=== PATIENT | male | born 1950 | race African-American/Black ===

== ENCOUNTER 2021-12-11 06:00 | Inpatient (IN) ==
[2021-12-11] MEDS ORDERED: DEXTROSE 50% 25 GM/50 ML VIAL IV PRN (11:36)
[2021-12-11] MEDS ORDERED: GLUCAGON 1 MG VIAL IM PRN ×2 (11:36)
[2021-12-11] MEDS ORDERED: SODIUM CHLORIDE 0.9% 1,000 ML IV SCH (12:00)
[2021-12-11] MEDS ORDERED: CLORAZEPATE 3.75 MG TABLET PO PRN (12:41)
[2021-12-11] MEDS ORDERED: NITROGLYCERIN SL 0.4 MG TABLET SL PRN (12:41)
[2021-12-11] MEDS ORDERED: MORPHINE 2 MG/1 ML SYRINGE IV PRN (12:41)
[2021-12-11] MEDS ORDERED: DEXTROSE 10% 250 ML BAG IV PRN (12:53)
[2021-12-11 13:17] LABS: Basophils # 0.1 10*3/uL (0.0-0.2); Basophils % 0.7 % (0.0-0.8); Eosinophils # 0.2 10*3/uL (0.0-0.87); Eosinophils % 2.5 % (0.00-10.9); Hematocrit 39.7 VOL% (42.0-52.0); Hemoglobin 12.4 GM/DL (14.0-18.0); Immature Granulocytes % 0.3 %; Immature Granulocytes Absolute 0.03 #; Lymphocytes # 1.6 10*3/uL (1.4-4.0); Lymphocytes % 18.5 % (21.2-54.2); Mean Corpuscular HGB Conc 31.2 GM/DL (32-36); Mean Corpuscular Volume 93.9 FL (87-102); Mean Platelet Volume 11.1 FL (9.6-12.0); Monocytes # 0.7 10*3/uL (0.11-0.8); Monocytes % 7.8 % (1.7-12.7); Neutrophils % 70.2 % (38.7-73.9); Platelet Count 250 T/CUMM (130-400); Red Blood Count 4.23 MC/CUMM (3.8-5.5); Red Cell Distribution Width 15.1 % (9.3-17.3); White Blood Count 8.9 T/CUMM (4-12)
[2021-12-11 13:40] LABS: Albumin 3.5 G/DL (3.4-5.0); Bilirubin,Total 0.9 MG/DL (0.20-1.00); Calcium 10.5 MG/DL (8.5-10.1); Osmolality,Calculated 283.8 MOS/KG (273-304); Potassium 5.3 MMOL/L (3.5-5.1); Total Protein 8.8 G/DL (6.4-8.2)
[2021-12-11 13:48] LABS: Atypical Lymphocytes Few; Eosinophils 3 % (0-10); Lymphocytes 21 % (20-55); Platelet Estimate Normal; Polychromasia Slight; Total Cells Counted 100
[2021-12-11 15:00] LABS: Arterial Base Excess iSTAT -2 MMOL/L (-2.5-2.5); Arterial Bicarbonate iSTAT 22.1 MMOL/L (20-26); Arterial O2 Saturation iSTAT 97 % (95-100); Arterial PCO2 iSTAT 37 MM HG (35-48); Arterial PO2 iSTAT 89 MM HG (80-95); Arterial Total CO2 iSTAT 23 MMO/L (23-27); Arterial pH iSTAT 7.391 (7.35-7.45)
[2021-12-11] MEDS: CHLORHEXIDINE 4% SOLN 118 ML BOTTLE TOP SCH ×2 (17:20→21:40)
[2021-12-11] MEDS: INSULIN REGULAR 100 UNIT/ML SUBCUT SCH ×2 (17:37→20:40)
[2021-12-11] MEDS: METOPROLOL TARTRATE 50 MG TABLET PO SCH (20:17)
[2021-12-11] MEDS ORDERED: ATORVASTATIN 40 MG TABLET PO SCH (21:00)
[2021-12-11] MEDS: CHLORHEXIDINE 0.12% ORAL RINSE 60 ML BOTTLE SWISH/SPIT SCH (23:40)
[2021-12-12] MEDS ORDERED: PAPAVERINE 60 MG/2 ML VIAL ONE (04:16)
[2021-12-12] MEDS ORDERED: VANCOMYCIN 1,000 MG VIAL ONE (04:17)
[2021-12-12] MEDS ORDERED: VANCOMYCIN 500 MG VIAL ONE (04:17)
[2021-12-12] MEDS: CHLORHEXIDINE 4% SOLN 118 ML BOTTLE TOP SCH (04:55)
[2021-12-12] MEDS ORDERED: CEFUROXIME INJ 1,500 MG in SODIUM CHLORIDE 0.9% 100 ML IV ONE (05:00)
[2021-12-12] MEDS ORDERED: PANTOPRAZOLE 40 MG TABLET PO STA (05:06)
[2021-12-12] MEDS ORDERED: DIAZEPAM 5 MG TABLET PO ONE (05:30)
[2021-12-12] MEDS ORDERED: HEPARIN/NACL 0.9% 2 UNITS/ML 1,000 UNIT/500 ML BAG IV ONE (05:46)
[2021-12-12] MEDS ORDERED: MINERAL OIL/PETROLATUM OPH OINT 3.5 GM TUBE ONE (05:46)
[2021-12-12] MEDS ORDERED: MIDAZOLAM 10 MG/2 ML VIAL ONE ×4 (05:46→10:17)
[2021-12-12] MEDS ORDERED: NITROGLYCERIN DRIP 50 MG/250 ML BOTTLE IV ONE (05:46)
[2021-12-12] MEDS ORDERED: CALCIUM CHLORIDE 1,000 MG/10 ML VIAL IV ONE ×2 (05:46→11:48)
[2021-12-12] MEDS ORDERED: VECURONIUM 10 MG VIAL IV ONE ×4 (05:46→05:49)
[2021-12-12] MEDS ORDERED: AMINOCAPROIC ACID 5,000 MG/20 ML VIAL ONE (05:46)
[2021-12-12] MEDS ORDERED: PHENYLEPHRINE DRIP 20 MG/250 ML PREMIX IV ONE (05:46)
[2021-12-12] MEDS ORDERED: LACTATED RINGERS 1,000 ML IV ONE (05:46)
[2021-12-12] MEDS ORDERED: SODIUM CHLORIDE 0.9% 1,000 ML IV ONE (05:46)
[2021-12-12] MEDS ORDERED: ETOMIDATE 40 MG/20 ML VIAL IV ONE (05:46)
[2021-12-12] MEDS ORDERED: ePHEDrine 50 MG/ML VIAL ONE (05:46)
[2021-12-12] MEDS ORDERED: SODIUM CHLORIDE 0.9% 250 ML IV ONE (05:46)
[2021-12-12] MEDS ORDERED: LIDOCAINE 2% 5 ML VIAL ONE ×2 (05:46→11:47)
[2021-12-12] MEDS ORDERED: SEVOFLURANE 1 UNIT/15 MINUTE INH ONE ×4 (05:46→12:41)
[2021-12-12] MEDS ORDERED: SUFentanil 250 MCG/5 ML AMP ONE (05:47)
[2021-12-12 07:33] LABS: ABG Base Excess -3.4 MMOL/L (-2.5-2.5); ABG HCO3 21.6 MMOL/L (20-26); ABG Oxygen Saturation 99.9 % (95-100); ABG PCO2 40.8 MM HG (35-48); ABG PH 7.342 (7.35-7.45); Glucose Heart Surgery 172 MG/DL (74-106); Hemoglobin Heart Surgery 10.7 G/DL (14.0-18.0); PCO2 Patient Temp Arterial 40.8 MMHG; PH Patient Temp Arterial 7.342; Patient Temperature 37 CELCIUS; Potassium Heart/CVR 4.6 MMOL/L (3.5-5.1); Sodium Heart/CVR 141 MMOL/L (135-145)
[2021-12-12 07:34] LABS: Hyaline Casts,Urine 4 /LPF (0-3); RBC,Urine 2 /HPF (0-4); Squamous Epithelial Cell,Urine Occasional /HPF (0-10); Urine Appearance Clear (Clear); Urine Color Yellow (Yellow)
[2021-12-12 07:35] LABS: Bilirubin,Urine Negative (Negative); Blood, Urine Trace mg/dL (Negative); Glucose,Urine (UA) Negative (Negative); Ketones,Urine Negative (Negative); Nitrite,Urine Negative (Negative); Protein,Urine 30 mg/dL (Negative); Urine Urobilinogen 0.2 eU/dL (<2.0)
[2021-12-12 08:46] LABS: Hematocrit Heart Surgery 22.4 PERCENT (42-52); Hemoglobin Heart Surgery 7.2 G/DL (14.0-18.0); PCO2 Patient Temp Venous 41.6 MM HG; PH Patient Temp Venous 7.36; PO2 Patient Temp Venous 49.5 MM HG; Potassium Heart/CVR 5.4 MMOL/L (3.5-5.1); VBG Base Excess -1.7 MEQ/L (0-4); VBG HCO3 22.8 MEQ/L (24-28); VBG Oxygen Saturation 84.6 %; VBG PCO2 43.7 MMHG (41-51); VBG PH 7.346; VBG PO2 52.9 MMHG (17-40); VBG Total CO2 22.7 MMOL/L
[2021-12-12] MEDS ORDERED: NITROPRUSSIDE 50 MG/2 ML VIAL ONE (09:03)
[2021-12-12] MEDS ORDERED: SODIUM BICARBONATE 50 MEQ/50 ML VIAL IV ONE ×7 (09:03→20:40)
[2021-12-12] MEDS ORDERED: POTASSIUM CHLORIDE RIDER 20 MEQ/100 ML PREMIX IV ONE (09:04)
[2021-12-12] MEDS ORDERED: PHENYLEPHRINE DRIP 40 MG/250 ML PREMIX IV ONE (09:04)
[2021-12-12] MEDS ORDERED: CALCIUM CHLORIDE 1,000 MG/10 ML SYRINGE IV ONE (09:04)
[2021-12-12] MEDS ORDERED: ALBUMIN 5% 12.5 GM/250 ML VIAL IV ONE ×3 (09:04→12:02)
[2021-12-12 09:16] LABS: Hematocrit Heart Surgery 23.8 PERCENT (42-52); Hemoglobin Heart Surgery 7.6 G/DL (14.0-18.0); PCO2 Patient Temp Venous 35.9 MM HG; PH Patient Temp Venous 7.388; Potassium Heart/CVR 4.9 MMOL/L (3.5-5.1); VBG Base Excess -2.8 MEQ/L (0-4); VBG HCO3 21.9 MEQ/L (24-28); VBG Oxygen Saturation 83.1 %; VBG PCO2 41.5 MMHG (41-51); VBG PH 7.345; VBG PO2 51.4 MMHG (17-40); VBG Total CO2 21.4 MMOL/L
[2021-12-12] MEDS ORDERED: ESMOLOL 100 MG/10 ML VIAL IV ONE (09:27)
[2021-12-12] MEDS: METOPROLOL TARTRATE 50 MG TABLET PO SCH ×3 (09:36→20:00)
[2021-12-12] MEDS: CHLORHEXIDINE 0.12% ORAL RINSE 60 ML BOTTLE SWISH/SPIT SCH ×2 (09:36→20:40)
[2021-12-12] MEDS: INSULIN REGULAR 100 UNIT/ML SUBCUT SCH ×2 (09:36→13:24)
[2021-12-12 09:45] LABS: Hematocrit Heart Surgery 22.3 PERCENT (42-52); Hemoglobin Heart Surgery 7.1 G/DL (14.0-18.0); PCO2 Patient Temp Venous 37.6 MM HG; PH Patient Temp Venous 7.38; PO2 Patient Temp Venous 38.6 MM HG; Potassium Heart/CVR 5.1 MMOL/L (3.5-5.1); VBG Base Excess -2.5 MEQ/L (0-4); VBG Oxygen Saturation 73.3 %; VBG PCO2 39.4 MMHG (41-51); VBG PH 7.365; VBG PO2 41.4 MMHG (17-40); VBG Total CO2 21.4 MMOL/L
[2021-12-12 10:15] LABS: Hematocrit Heart Surgery 24.2 PERCENT (42-52); Hemoglobin Heart Surgery 7.8 G/DL (14.0-18.0); PCO2 Patient Temp Venous 30.4 MM HG; PH Patient Temp Venous 7.454; PO2 Patient Temp Venous 34.4 MM HG; Potassium Heart/CVR 4.6 MMOL/L (3.5-5.1); VBG Base Excess -1.9 MEQ/L (0-4); VBG HCO3 22.5 MEQ/L (24-28); VBG Oxygen Saturation 77.1 %; VBG PCO2 35.2 MMHG (41-51); VBG PH 7.41; VBG PO2 42.3 MMHG (17-40); VBG Total CO2 20.9 MMOL/L
[2021-12-12] MEDS ORDERED: THROMBIN TOPICAL (RECOMBINANT) 5,000 UNIT VIAL TOP ONE (10:34)
[2021-12-12 10:50] LABS: Hematocrit Heart Surgery 23.5 PERCENT (42-52); Hemoglobin Heart Surgery 7.5 G/DL (14.0-18.0); PCO2 Patient Temp Venous 30.4 MM HG; PH Patient Temp Venous 7.446; VBG Base Excess -2.5 MEQ/L (0-4); VBG HCO3 21.9 MEQ/L (24-28); VBG Oxygen Saturation 60.6 %; VBG PCO2 33.5 MMHG (41-51); VBG PH 7.417; VBG PO2 32.3 MMHG (17-40); VBG Total CO2 20.4 MMOL/L
[2021-12-12] MEDS ORDERED: ALBUTEROL INHALER 18 GM INH ONE (11:15)
[2021-12-12 11:28] LABS: ABG Base Excess -4.9 MMOL/L (-2.5-2.5); ABG HCO3 20.3 MMOL/L (20-26); ABG Oxygen Saturation 92.7 % (95-100); ABG PCO2 34.3 MM HG (35-48); ABG PO2 66.4 MM HG (80-95); ABG TCO2 18.7 MMOL/L (23-27); Glucose Heart Surgery 304 MG/DL (74-106); Hematocrit Heart Surgery 23.2 PERCENT (42-52); Hemoglobin Heart Surgery 7.4 G/DL (14.0-18.0); Ionized Calcium Arterial 1.25 MMOL/L (1.21-1.46); PCO2 Patient Temp Arterial 34.3 MMHG; PO2 Patient Temp Arterial 66.4 MM HG; Patient Temperature 37 CELCIUS; Potassium Heart/CVR 3.8 MMOL/L (3.5-5.1); Sodium Heart/CVR 131 MMOL/L (135-145)
[2021-12-12] MEDS ORDERED: NITROPRUSSIDE 100 MG in DEXTROSE 5% 250 ML IV PRN (11:33)
[2021-12-12] MEDS ORDERED: INSULIN REGULAR 100 UNIT/ML IV ONE (11:33)
[2021-12-12] MEDS ORDERED: VECURONIUM 10 MG VIAL IV PRN (11:33)
[2021-12-12] MEDS ORDERED: LACTATED RINGERS 250 ML IV PRN (11:33)
[2021-12-12] MEDS ORDERED: ACETAMINOPHEN 650 MG SUPP RECTAL PRN (11:33)
[2021-12-12] MEDS ORDERED: CHLORHEXIDINE 4% SOLN 118 ML BOTTLE TOP PRN (11:33)
[2021-12-12] MEDS ORDERED: CALCIUM CHLORIDE 1,000 MG/10 ML SYRINGE IV PRN (11:33)
[2021-12-12] MEDS ORDERED: MAGNESIUM SULF RIDER 4 GM/100 ML PREMIX IV PRN (11:33)
[2021-12-12] MEDS ORDERED: POTASSIUM CHLORIDE RIDER 20 MEQ/100 ML PREMIX IV PRN (11:33)
[2021-12-12] MEDS ORDERED: ONDANSETRON 4 MG/2 ML VIAL IV PRN (11:33)
[2021-12-12] MEDS ORDERED: MAGNESIUM SULF RIDER 2 GM/50 ML PREMIX IV PRN (11:33)
[2021-12-12] MEDS ORDERED: POTASSIUM CHLORIDE RIDER 10 MEQ/100 ML PREMIX IV PRN (11:33)
[2021-12-12] MEDS ORDERED: DEXTROSE 10% 250 ML BAG IV PRN ×2 (11:41)
[2021-12-12] MEDS ORDERED: ALBUMIN 25% 25 GM/100 ML VIAL IV ONE (11:47)
[2021-12-12] MEDS ORDERED: MAGNESIUM SULFATE 5 GM/10 ML VIAL IV ONE (11:47)
[2021-12-12] MEDS ORDERED: methylPREDNISolone SOD SUC 1,000 MG/8 ML VIAL ONE (11:47)
[2021-12-12] MEDS ORDERED: PROTAMINE SULFATE 250 MG/25 ML VIAL IV ONE (11:48)
[2021-12-12] MEDS ORDERED: HEPARIN 10,000 UNIT/10 ML VIAL ONE (11:48)
[2021-12-12] MEDS ORDERED: DEXTROSE 5% KCL 20 MEQ 40 MEQ/2,000 ML BAG IV ONE (11:48)
[2021-12-12] MEDS ORDERED: PROTAMINE SULFATE 50 MG/5 ML VIAL IV ONE ×2 (11:49→12:36)
[2021-12-12] MEDS ORDERED: POTASSIUM CHLORIDE 20 MEQ/10 ML VIAL ONE (11:49)
[2021-12-12] MEDS ORDERED: FUROSEMIDE 20 MG/2 ML VIAL ONE (11:49)
[2021-12-12] MEDS ORDERED: MANNITOL 12.5 GM/50 ML VIAL IV ONE (11:49)
[2021-12-12] MEDS: SODIUM CHLORIDE 0.45% 1,000 ML IV SCH ×2 (12:25)
[2021-12-12 12:55] LABS: ABG Base Excess -3.2 MMOL/L (-2.5-2.5); ABG HCO3 21.7 MMOL/L (20-26); ABG PH 7.351 (7.35-7.45); ABG PO2 91.9 MM HG (80-95); ABG TCO2 20.7 MMOL/L (23-27); Glucose Heart Surgery 256 MG/DL (74-106); Hematocrit Heart Surgery 24.7 PERCENT (42-52); Hemoglobin Heart Surgery 7.9 G/DL (14.0-18.0); Potassium Heart/CVR 4.3 MMOL/L (3.5-5.1)
[2021-12-12 13:00] LABS: Basophils # 0.1 10*3/uL (0.0-0.2); Basophils % 0.3 % (0.0-0.8); Eosinophils % 0.2 % (0.00-10.9); Hematocrit 24.9 VOL% (42.0-52.0); Hemoglobin 7.9 GM/DL (14.0-18.0); Immature Granulocytes % 0.8 %; Immature Granulocytes Absolute 0.13 #; Mean Corpuscular HGB Conc 31.7 GM/DL (32-36); Mean Corpuscular Volume 93.3 FL (87-102); Mean Platelet Volume 11.2 FL (9.6-12.0); Monocytes # 1.1 10*3/uL (0.11-0.8); Monocytes % 6.5 % (1.7-12.7); Neutrophils % 80.2 % (38.7-73.9); Platelet Count 166 T/CUMM (130-400); Red Blood Count 2.67 MC/CUMM (3.8-5.5); Red Cell Distribution Width 14.9 % (9.3-17.3)
[2021-12-12 13:08] LABS: INR 1.1; PT Patient Result 12.2 SECS (10.5-12.0); Partial Thromboplastin Time 29.3 SECS (23.8-32.1)
[2021-12-12 13:24] LABS: CKMB % 6.79 %
[2021-12-12] MEDS: INSULIN REGULAR DRIP 100 ML IV SCH ×2 (13:26→20:17)
[2021-12-12 13:30] LABS: High Sensitive Troponin I* 5248.6 ng/L (0-78)
[2021-12-12 13:33] LABS: Albumin 3.2 G/DL (3.4-5.0); Bilirubin,Total 1.4 MG/DL (0.20-1.00); Calcium 9.7 MG/DL (8.5-10.1); Potassium 4.3 MMOL/L (3.5-5.1); Total Protein 6.4 G/DL (6.4-8.2)
[2021-12-12] MEDS ORDERED: NITROGLYCERIN DRIP 50 MG/250 ML BOTTLE IV PRN (14:42)
[2021-12-12 14:44] LABS: ABG Base Excess -6.3 MMOL/L (-2.5-2.5); ABG HCO3 19.2 MMOL/L (20-26); ABG Oxygen Saturation 92.6 % (95-100); ABG PCO2 44.1 MM HG (35-48); ABG PH 7.273 (7.35-7.45); ABG PO2 71.7 MM HG (80-95); ABG TCO2 18.8 MMOL/L (23-27); Glucose Heart Surgery 283 MG/DL (74-106); Hematocrit Heart Surgery 32.2 PERCENT (42-52); Hemoglobin Heart Surgery 10.4 G/DL (14.0-18.0); Potassium Heart/CVR 4.1 MMOL/L (3.5-5.1)
[2021-12-12] MEDS: INSULIN REGULAR 100 UNIT/ML IV PRN (15:12)
[2021-12-12] MEDS ORDERED: FUROSEMIDE 40 MG/4 ML VIAL IV ONE (15:21)
[2021-12-12] MEDS: ALBUMIN 5% 12.5 GM/250 ML VIAL IV PRN (16:06)
[2021-12-12 16:22] LABS: ABG Base Excess -10.3 MMOL/L (-2.5-2.5); ABG HCO3 16.2 MMOL/L (20-26); ABG PCO2 44.2 MM HG (35-48); ABG PO2 79.6 MM HG (80-95); ABG TCO2 16.3 MMOL/L (23-27); Glucose Heart Surgery 261 MG/DL (74-106); Hematocrit Heart Surgery 32.6 PERCENT (42-52); Hemoglobin Heart Surgery 10.6 G/DL (14.0-18.0); Potassium Heart/CVR 3.7 MMOL/L (3.5-5.1)
[2021-12-12 16:24] LABS: ABG PH 7.205 (7.35-7.45)
[2021-12-12] MEDS: MIDAZOLAM 2 MG/2 ML VIAL IV PRN (16:57)
[2021-12-12 17:38] LABS: ABG Base Excess -6.5 MMOL/L (-2.5-2.5); ABG Oxygen Saturation 94.9 % (95-100); ABG PCO2 41.7 MM HG (35-48); ABG PH 7.284 (7.35-7.45); ABG PO2 81.6 MM HG (80-95); ABG TCO2 18.3 MMOL/L (23-27); Glucose Heart Surgery 242 MG/DL (74-106); Hematocrit Heart Surgery 30.8 PERCENT (42-52)
[2021-12-12 18:09] LABS: CKMB % 6.18 %; Osmolality,Calculated 292.5 MOS/KG (273-304)
[2021-12-12 18:14] LABS: High Sensitive Troponin I* 10969.2 ng/L (0-78)
[2021-12-12] MEDS ORDERED: FUROSEMIDE 100 MG/10 ML VIAL IV ONE (18:24)
[2021-12-12] MEDS: CEFUROXIME INJ 1,500 MG in SODIUM CHLORIDE 0.9% 100 ML IV SCH (19:26)
[2021-12-12] MEDS: FUROSEMIDE INJ 100 MG in SODIUM CHLORIDE 0.9% 90 ML IV SCH (19:56)
[2021-12-12 20:23] LABS: ABG Base Excess -4.3 MMOL/L (-2.5-2.5); ABG HCO3 20.8 MMOL/L (20-26); ABG PCO2 47.7 MM HG (35-48); ABG PH 7.286 (7.35-7.45); ABG PO2 73.9 MM HG (80-95); ABG TCO2 20.2 MMOL/L (23-27); Glucose Heart Surgery 225 MG/DL (74-106); Hematocrit Heart Surgery 40.8 PERCENT (42-52); Hemoglobin Heart Surgery 13.3 G/DL (14.0-18.0); Potassium Heart/CVR 3.6 MMOL/L (3.5-5.1)
[2021-12-12 20:54] LABS: CKMB % 7.01 %
[2021-12-12] MEDS: MORPHINE 2 MG/1 ML SYRINGE IV PRN (22:10)
[2021-12-12 22:44] LABS: ABG Base Excess -0.9 MMOL/L (-2.5-2.5); ABG HCO3 23.6 MMOL/L (20-26); ABG Oxygen Saturation 95.7 % (95-100); ABG PCO2 41.8 MM HG (35-48); ABG PH 7.373 (7.35-7.45); ABG TCO2 22.2 MMOL/L (23-27); Glucose Heart Surgery 171 MG/DL (74-106); Hematocrit Heart Surgery 31.2 PERCENT (42-52); Hemoglobin Heart Surgery 10.1 G/DL (14.0-18.0)
[2021-12-12 23:46] LABS: ABG HCO3 24.4 MMOL/L (20-26); ABG Oxygen Saturation 96.3 % (95-100); ABG PCO2 40.4 MM HG (35-48); ABG PH 7.397 (7.35-7.45); ABG PO2 82.3 MM HG (80-95); ABG TCO2 22.6 MMOL/L (23-27); Glucose Heart Surgery 170 MG/DL (74-106); Hematocrit Heart Surgery 31.1 PERCENT (42-52); Hemoglobin Heart Surgery 10.1 G/DL (14.0-18.0); Potassium Heart/CVR 4.2 MMOL/L (3.5-5.1)
[2021-12-13] MEDS: FUROSEMIDE INJ 100 MG in SODIUM CHLORIDE 0.9% 90 ML IV SCH ×7 (00:50→21:10)
[2021-12-13 01:09] LABS: ABG Base Excess 0.7 MMOL/L (-2.5-2.5); ABG Oxygen Saturation 96.1 % (95-100); ABG PCO2 39.5 MM HG (35-48); ABG PH 7.413 (7.35-7.45); ABG PO2 79.7 MM HG (80-95); ABG TCO2 22.9 MMOL/L (23-27); Glucose Heart Surgery 168 MG/DL (74-106); Hematocrit Heart Surgery 31.1 PERCENT (42-52); Potassium Heart/CVR 4.2 MMOL/L (3.5-5.1)
[2021-12-13 02:11] LABS: ABG Base Excess 1.1 MMOL/L (-2.5-2.5); ABG HCO3 25.3 MMOL/L (20-26); ABG PCO2 36.6 MM HG (35-48); ABG PH 7.442 (7.35-7.45); ABG PO2 71.3 MM HG (80-95); ABG TCO2 22.7 MMOL/L (23-27); Glucose Heart Surgery 190 MG/DL (74-106); Hematocrit Heart Surgery 30.6 PERCENT (42-52); Hemoglobin Heart Surgery 9.9 G/DL (14.0-18.0); Potassium Heart/CVR 4.5 MMOL/L (3.5-5.1)
[2021-12-13] MEDS: MIDAZOLAM 2 MG/2 ML VIAL IV PRN ×2 (03:44→12:23)
[2021-12-13 04:27] LABS: Basophils % 0.1 % (0.0-0.8); Hematocrit 30.4 VOL% (42.0-52.0); Immature Granulocytes % 0.8 %; Immature Granulocytes Absolute 0.18 #; Lymphocytes % 4.4 % (21.2-54.2); Mean Corpuscular HGB Conc 32.9 GM/DL (32-36); Mean Corpuscular Volume 89.9 FL (87-102); Monocytes # 1.4 10*3/uL (0.11-0.8); Monocytes % 6.2 % (1.7-12.7); Neutrophils % 88.5 % (38.7-73.9); Platelet Count 166 T/CUMM (130-400); Red Blood Count 3.38 MC/CUMM (3.8-5.5); Red Cell Distribution Width 15.8 % (9.3-17.3); White Blood Count 22.3 T/CUMM (4-12)
[2021-12-13] MEDS: DEXMEDETOMIDINE 200 MCG in SODIUM CHLORIDE 0.9% 48 ML IV PRN ×2 (04:34→12:11)
[2021-12-13 04:45] LABS: Band Neutrophils 1 % (0-10); Lymphocytes 5 % (20-55); Nucleated Red Blood Cells 1 (0-5); Platelet Estimate Adequate; Total Cells Counted 100
[2021-12-13 04:50] LABS: Albumin 3.5 G/DL (3.4-5.0); Bilirubin,Direct 0.25 MG/DL (0.0-0.20); Bilirubin,Total 1.1 MG/DL (0.20-1.00); Osmolality,Calculated 296.1 MOS/KG (273-304); Potassium 4.2 MMOL/L (3.5-5.1); Total Protein 6.2 G/DL (6.4-8.2)
[2021-12-13 05:01] LABS: ABG Base Excess 0.9 MMOL/L (-2.5-2.5); ABG HCO3 25.2 MMOL/L (20-26); ABG Oxygen Saturation 96.6 % (95-100); ABG PCO2 36.5 MM HG (35-48); ABG PH 7.441 (7.35-7.45); ABG PO2 83.2 MM HG (80-95); ABG TCO2 22.5 MMOL/L (23-27); Glucose Heart Surgery 170 MG/DL (74-106); Hematocrit Heart Surgery 31.2 PERCENT (42-52); Hemoglobin Heart Surgery 10.1 G/DL (14.0-18.0); Potassium Heart/CVR 4.3 MMOL/L (3.5-5.1)
[2021-12-13 05:23] LABS: CKMB % 11.79 %
[2021-12-13 05:54] LABS: ABG Base Excess 1.7 MMOL/L (-2.5-2.5); ABG HCO3 25.9 MMOL/L (20-26); ABG Oxygen Saturation 96.4 % (95-100); ABG PCO2 36.1 MM HG (35-48); ABG PH 7.456 (7.35-7.45); ABG PO2 78.4 MM HG (80-95); ABG TCO2 23.1 MMOL/L (23-27); Glucose Heart Surgery 146 MG/DL (74-106); Hematocrit Heart Surgery 30.3 PERCENT (42-52); Hemoglobin Heart Surgery 9.8 G/DL (14.0-18.0); Potassium Heart/CVR 4.4 MMOL/L (3.5-5.1)
[2021-12-13 06:23] LABS: High Sensitive Troponin I* 18126.3 ng/L (0-78)
[2021-12-13] MEDS ORDERED: methylPREDNISolone SOD SUC 125 MG/2 ML VIAL IV ONE (06:45)
[2021-12-13] MEDS: ALBUMIN 5% 12.5 GM/250 ML VIAL IV PRN (06:47)
[2021-12-13 07:09] LABS: ABG Base Excess 2.2 MMOL/L (-2.5-2.5); ABG HCO3 26.4 MMOL/L (20-26); ABG Oxygen Saturation 95.6 % (95-100); ABG PCO2 34.2 MM HG (35-48); ABG PH 7.481 (7.35-7.45); ABG PO2 73.9 MM HG (80-95); ABG TCO2 23.3 MMOL/L (23-27); Glucose Heart Surgery 120 MG/DL (74-106); Hematocrit Heart Surgery 29.3 PERCENT (42-52); Hemoglobin Heart Surgery 9.4 G/DL (14.0-18.0); Potassium Heart/CVR 4.2 MMOL/L (3.5-5.1)
[2021-12-13] MEDS: INSULIN REGULAR DRIP 100 ML IV SCH ×2 (07:10→11:43)
[2021-12-13] MEDS: CEFUROXIME INJ 1,500 MG in SODIUM CHLORIDE 0.9% 100 ML IV SCH ×2 (08:29→18:33)
[2021-12-13] MEDS: PANTOPRAZOLE 40 MG VIAL IV SCH (09:15)
[2021-12-13] MEDS: METOPROLOL TARTRATE 50 MG TABLET PO SCH ×2 (09:18→20:29)
[2021-12-13] MEDS: ASPIRIN 325 MG TABLET PO SCH (09:18)
[2021-12-13] MEDS: CHLORHEXIDINE 0.12% ORAL RINSE 60 ML BOTTLE SWISH/SPIT SCH ×2 (09:18→20:29)
[2021-12-13] MEDS: SODIUM CHLORIDE 0.45% 1,000 ML IV SCH ×2 (11:43)
[2021-12-13 13:30] LABS: ABG Base Excess 1.2 MMOL/L (-2.5-2.5); ABG HCO3 25.4 MMOL/L (20-26); ABG Oxygen Saturation 96.1 % (95-100); ABG PH 7.467 (7.35-7.45); ABG PO2 79.7 MM HG (80-95); ABG TCO2 22.5 MMOL/L (23-27); Glucose Heart Surgery 205 MG/DL (74-106); Hematocrit Heart Surgery 28.9 PERCENT (42-52); Hemoglobin Heart Surgery 9.3 G/DL (14.0-18.0); Potassium Heart/CVR 4.6 MMOL/L (3.5-5.1)
[2021-12-13] MEDS: methylPREDNISolone SOD SUC 40 MG/1 ML VIAL IV SCH ×2 (13:40→18:23)
[2021-12-13 14:16] LABS: CKMB % 9.19 %
[2021-12-13 14:18] LABS: High Sensitive Troponin I* 81317.5 ng/L (0-78)
[2021-12-13] MEDS ORDERED: AMIODARONE INJ 450 MG in DEXTROSE 5% 241 ML IV SCH (15:00)
[2021-12-13] MEDS: INSULIN REGULAR 100 UNIT/ML IV PRN ×2 (16:27→21:13)
[2021-12-13 18:52] LABS: CKMB % 7.62 %; High Sensitive Troponin I* 77974.8 ng/L (0-78)
[2021-12-13] MEDS: AMIODARONE INJ 450 MG in DEXTROSE 5% 241 ML IV SCH (21:27)
[2021-12-14] MEDS: INSULIN REGULAR 100 UNIT/ML IV PRN (00:13)
[2021-12-14] MEDS: methylPREDNISolone SOD SUC 40 MG/1 ML VIAL IV SCH ×4 (00:26→18:50)
[2021-12-14] MEDS: FUROSEMIDE INJ 100 MG in SODIUM CHLORIDE 0.9% 90 ML IV SCH ×5 (01:40→21:36)
[2021-12-14 03:36] LABS: Basophils % 0.1 % (0.0-0.8); Hematocrit 28.7 VOL% (42.0-52.0); Hemoglobin 9.4 GM/DL (14.0-18.0); Immature Granulocytes % 1.2 %; Immature Granulocytes Absolute 0.33 #; Lymphocytes % 3.6 % (21.2-54.2); Mean Corpuscular HGB Conc 32.8 GM/DL (32-36); Mean Corpuscular Volume 89.7 FL (87-102); Mean Platelet Volume 12.2 FL (9.6-12.0); Monocytes # 1.9 10*3/uL (0.11-0.8); Monocytes % 6.6 % (1.7-12.7); NRBC # 0.02 10*3/uL; Neutrophils % 88.5 % (38.7-73.9); Platelet Count 151 T/CUMM (130-400); Red Cell Distribution Width 15.6 % (9.3-17.3); White Blood Count 28.6 T/CUMM (4-12)
[2021-12-14 03:37] LABS: ABG Base Excess 2.8 MMOL/L (-2.5-2.5); ABG HCO3 26.9 MMOL/L (20-26); ABG Oxygen Saturation 96.5 % (95-100); ABG PCO2 33.8 MM HG (35-48); ABG PH 7.492 (7.35-7.45); ABG TCO2 23.6 MMOL/L (23-27); Glucose Heart Surgery 179 MG/DL (74-106); Hematocrit Heart Surgery 29.3 PERCENT (42-52); Hemoglobin Heart Surgery 9.5 G/DL (14.0-18.0); Potassium Heart/CVR 3.8 MMOL/L (3.5-5.1)
[2021-12-14 03:58] LABS: Platelet Estimate Adequate
[2021-12-14 04:03] LABS: Albumin 3.1 G/DL (3.4-5.0); Bilirubin,Direct 0.34 MG/DL (0.0-0.20); Bilirubin,Total 1.6 MG/DL (0.20-1.00); Calcium 9.5 MG/DL (8.5-10.1); Osmolality,Calculated 300.3 MOS/KG (273-304); Potassium 3.8 MMOL/L (3.5-5.1); Total Protein 6.7 G/DL (6.4-8.2)
[2021-12-14 04:10] LABS: CKMB % 5.31 %
[2021-12-14 04:16] LABS: High Sensitive Troponin I* 69240.8 ng/L (0-78)
[2021-12-14] MEDS ORDERED: SODIUM CHLORIDE 0.9% 1,000 ML IV SCH (06:50)
[2021-12-14] MEDS ORDERED: DIGOXIN 0.5 MG/2 ML AMP IV ONE (08:21)
[2021-12-14] MEDS: VECURONIUM 10 MG VIAL IV PRN (08:56)
[2021-12-14] MEDS: PHENYLEPHRINE DRIP 40 MG/250 ML PREMIX IV PRN ×3 (09:00→21:28)
[2021-12-14] MEDS ORDERED: INSULIN GLARGINE 100 UNIT/ML SUBCUT SCH (09:00)
[2021-12-14] MEDS ORDERED: CALCIUM CHLORIDE 1,000 MG in SODIUM CHLORIDE 0.9% 100 ML IV ONE (09:04)
[2021-12-14 09:05] LABS: ABG Base Excess -2.1 MMOL/L (-2.5-2.5); ABG HCO3 22.6 MMOL/L (20-26); ABG PCO2 36.7 MM HG (35-48); ABG PH 7.394 (7.35-7.45); ABG PO2 81.2 MM HG (80-95); ABG TCO2 20.4 MMOL/L (23-27); Glucose Heart Surgery 285 MG/DL (74-106); Hematocrit Heart Surgery 30.9 PERCENT (42-52); Potassium Heart/CVR 4.7 MMOL/L (3.5-5.1)
[2021-12-14] MEDS ORDERED: SODIUM BICARBONATE 50 MEQ/50 ML VIAL IV ONE (09:08)
[2021-12-14] MEDS ORDERED: SODIUM BICARBONATE 50 MEQ/50 ML SYRINGE IV ONE (09:08)
[2021-12-14] MEDS ORDERED: EPINEPHrine 1 MG/10 ML SYRINGE IV ONE (09:09)
[2021-12-14] MEDS: METOPROLOL TARTRATE 50 MG TABLET PO SCH ×2 (10:50→21:29)
[2021-12-14] MEDS: ASPIRIN 325 MG TABLET PO SCH (11:05)
[2021-12-14] MEDS: PANTOPRAZOLE 40 MG VIAL IV SCH (11:07)
[2021-12-14] MEDS: DEXMEDETOMIDINE 200 MCG in SODIUM CHLORIDE 0.9% 48 ML IV PRN ×2 (11:10→14:20)
[2021-12-14] MEDS: CHLORHEXIDINE 0.12% ORAL RINSE 60 ML BOTTLE SWISH/SPIT SCH ×2 (11:44→21:30)
[2021-12-14] MEDS: INSULIN REGULAR DRIP 100 ML IV SCH (11:50)
[2021-12-14] MEDS ORDERED: ALBUTEROL/IPRATROPIUM 3 ML NEB RESP TX SCH (13:00)
[2021-12-14] MEDS: LEVALBUTEROL 1.25 MG/3 ML NEB RESP TX SCH ×2 (13:14→20:17)
[2021-12-14 13:30] LABS: ABG Base Excess 2.6 MMOL/L (-2.5-2.5); ABG HCO3 26.7 MMOL/L (20-26); ABG PCO2 43.1 MM HG (35-48); ABG PH 7.412 (7.35-7.45); Glucose Heart Surgery 284 MG/DL (74-106); Hematocrit Heart Surgery 30.6 PERCENT (42-52); Hemoglobin Heart Surgery 9.9 G/DL (14.0-18.0)
[2021-12-14] MEDS: AMIODARONE INJ 450 MG in DEXTROSE 5% 241 ML IV SCH (14:02)
[2021-12-14] MEDS: INSULIN REGULAR 100 UNIT/ML SUBCUT PRN ×3 (14:22→21:29)
[2021-12-14] MEDS: DEXMEDETOMIDINE 400 MCG in SODIUM CHLORIDE 0.9% 96 ML IV PRN (17:50)
[2021-12-14] MEDS ORDERED: ACETAMINOPHEN 325 MG/10.15 ML UDCUP ONE ×2 (22:17)
[2021-12-14] MEDS: ACETAMINOPHEN 325 MG/10.15 ML UDCUP NG PRN (23:55)
[2021-12-15] MEDS: DEXMEDETOMIDINE 400 MCG in SODIUM CHLORIDE 0.9% 96 ML IV PRN ×4 (00:11→19:35)
[2021-12-15] MEDS: methylPREDNISolone SOD SUC 40 MG/1 ML VIAL IV SCH ×4 (00:11→17:59)
[2021-12-15] MEDS: INSULIN REGULAR 100 UNIT/ML SUBCUT PRN ×5 (02:47→22:36)
[2021-12-15] MEDS: FUROSEMIDE INJ 100 MG in SODIUM CHLORIDE 0.9% 90 ML IV SCH ×5 (02:48→19:48)
[2021-12-15] MEDS: AMIODARONE INJ 450 MG in DEXTROSE 5% 241 ML IV SCH ×2 (03:47→21:10)
[2021-12-15 05:31] LABS: Basophils % 0.1 % (0.0-0.8); Hemoglobin 9.3 GM/DL (14.0-18.0); Immature Granulocytes % 1.3 %; Immature Granulocytes Absolute 0.34 #; Lymphocytes # 0.8 10*3/uL (1.4-4.0); Lymphocytes % 2.9 % (21.2-54.2); Mean Corpuscular HGB Conc 32.1 GM/DL (32-36); Mean Corpuscular Volume 93.9 FL (87-102); Mean Platelet Volume 12.8 FL (9.6-12.0); Monocytes # 1.7 10*3/uL (0.11-0.8); Monocytes % 6.3 % (1.7-12.7); NRBC # 0.19 10*3/uL; Neutrophils % 89.4 % (38.7-73.9); Platelet Count 170 T/CUMM (130-400); Red Blood Count 3.09 MC/CUMM (3.8-5.5); Red Cell Distribution Width 15.2 % (9.3-17.3)
[2021-12-15 05:43] LABS: ABG Base Excess 3.1 MMOL/L (-2.5-2.5); ABG HCO3 27.2 MMOL/L (20-26); ABG Oxygen Saturation 97.8 % (95-100); ABG PCO2 44.5 MM HG (35-48); ABG TCO2 25.8 MMOL/L (23-27)
[2021-12-15 05:58] LABS: Lymphocytes 6 % (20-55); Total Cells Counted 100
[2021-12-15 05:59] LABS: Platelet Estimate Adequate
[2021-12-15 06:04] LABS: CKMB % 1.57 %
[2021-12-15 06:08] LABS: High Sensitive Troponin I* 53961.4 ng/L (0-78)
[2021-12-15] MEDS: ACETAMINOPHEN 325 MG/10.15 ML UDCUP NG PRN ×2 (06:11→12:29)
[2021-12-15 06:36] LABS: Albumin 2.7 G/DL (3.4-5.0); Bilirubin,Direct 0.2 MG/DL (0.0-0.20); Bilirubin,Total 1.1 MG/DL (0.20-1.00); Calcium 8.6 MG/DL (8.5-10.1); Osmolality,Calculated 323.7 MOS/KG (273-304); Potassium 3.4 MMOL/L (3.5-5.1); Total Protein 6.7 G/DL (6.4-8.2)
[2021-12-15] MEDS: LEVALBUTEROL 1.25 MG/3 ML NEB RESP TX SCH ×4 (06:59→20:03)
[2021-12-15] MEDS: PHENYLEPHRINE DRIP 40 MG/250 ML PREMIX IV PRN ×2 (07:30→19:48)
[2021-12-15] MEDS: SODIUM CHLORIDE 0.9% 1,000 ML IV SCH (09:00)
[2021-12-15] MEDS: ASPIRIN 325 MG TABLET PO SCH (10:12)
[2021-12-15] MEDS: PANTOPRAZOLE 40 MG VIAL IV SCH (10:13)
[2021-12-15] MEDS: METOPROLOL TARTRATE 25 MG TABLET PO SCH ×2 (10:13→22:26)
[2021-12-15] MEDS: INSULIN GLARGINE 100 UNIT/ML SUBCUT SCH (10:26)
[2021-12-15] MEDS: CHLORHEXIDINE 0.12% ORAL RINSE 60 ML BOTTLE SWISH/SPIT SCH ×2 (10:26→22:18)
[2021-12-15] MEDS: VECURONIUM 10 MG VIAL IV PRN (14:00)
[2021-12-15 16:27] LABS: Bilirubin,Urine Negative (Negative); Blood, Urine Moderate mg/dL (Negative); Glucose,Urine (UA) Negative (Negative); Hyaline Casts,Urine 30 /LPF (0-3); Ketones,Urine Negative (Negative); Mucus,Urine Occasional /LPF (Occasional); Nitrite,Urine Negative (Negative); Protein,Urine Negative (Negative); RBC,Urine 60 /HPF (0-4); Urine Appearance Clear (Clear); Urine Color Yellow (Yellow); Urine Specific Gravity 1.025 (1.001-1.035)
[2021-12-15 16:28] LABS: Urine Urobilinogen 0.2 eU/dL (<2.0)
[2021-12-15] MEDS ORDERED: HEPARIN/NACL 0.9% 2 UNITS/ML 1,000 UNIT/500 ML BAG IV ONE (19:20)
[2021-12-16] MEDS: FUROSEMIDE INJ 100 MG in SODIUM CHLORIDE 0.9% 90 ML IV SCH ×5 (01:19→21:24)
[2021-12-16] MEDS: LEVALBUTEROL 1.25 MG/3 ML NEB RESP TX SCH ×4 (01:23→18:50)
[2021-12-16] MEDS: DEXMEDETOMIDINE 400 MCG in SODIUM CHLORIDE 0.9% 96 ML IV PRN ×4 (01:27→19:55)
[2021-12-16] MEDS: methylPREDNISolone SOD SUC 40 MG/1 ML VIAL IV SCH ×5 (02:00→20:50)
[2021-12-16 04:47] LABS: ABG Base Excess 0.7 MMOL/L (-2.5-2.5); ABG HCO3 25.1 MMOL/L (20-26); ABG Oxygen Saturation 98.9 % (95-100); ABG PCO2 45.8 MM HG (35-48); ABG PH 7.368 (7.35-7.45); ABG TCO2 24.3 MMOL/L (23-27)
[2021-12-16 04:57] LABS: Basophils % 0.1 % (0.0-0.8); Hematocrit 29.4 VOL% (42.0-52.0); Hemoglobin 9.4 GM/DL (14.0-18.0); Immature Granulocytes % 1.5 %; Immature Granulocytes Absolute 0.41 #; Lymphocytes # 0.5 10*3/uL (1.4-4.0); Lymphocytes % 1.8 % (21.2-54.2); Mean Corpuscular Volume 93.9 FL (87-102); Mean Platelet Volume 12.8 FL (9.6-12.0); Monocytes # 1.6 10*3/uL (0.11-0.8); Monocytes % 5.8 % (1.7-12.7); NRBC # 0.24 10*3/uL; Neutrophils % 90.8 % (38.7-73.9); Platelet Count 233 T/CUMM (130-400); Red Blood Count 3.13 MC/CUMM (3.8-5.5); Red Cell Distribution Width 15.1 % (9.3-17.3); White Blood Count 27.9 T/CUMM (4-12)
[2021-12-16 05:17] LABS: Albumin 2.4 G/DL (3.4-5.0); Bilirubin,Total 0.7 MG/DL (0.20-1.00); Calcium 7.2 MG/DL (8.5-10.1); Osmolality,Calculated 342.7 MOS/KG (273-304); Potassium 3.3 MMOL/L (3.5-5.1); Total Protein 6.2 G/DL (6.4-8.2)
[2021-12-16 05:18] LABS: Lymphocytes 3 % (20-55); Total Cells Counted 100
[2021-12-16 05:19] LABS: Platelet Estimate Adequate
[2021-12-16] MEDS: PHENYLEPHRINE DRIP 40 MG/250 ML PREMIX IV PRN ×2 (06:06→16:30)
[2021-12-16] MEDS: INSULIN REGULAR 100 UNIT/ML SUBCUT PRN ×5 (06:15→17:31)
[2021-12-16] MEDS: INSULIN GLARGINE 100 UNIT/ML SUBCUT SCH ×2 (08:59→20:49)
[2021-12-16] MEDS: METOPROLOL TARTRATE 25 MG TABLET PO SCH ×2 (09:05→20:50)
[2021-12-16] MEDS: ASPIRIN 325 MG TABLET PO SCH (09:05)
[2021-12-16] MEDS: PANTOPRAZOLE 40 MG VIAL IV SCH (09:06)
[2021-12-16] MEDS: CHLORHEXIDINE 0.12% ORAL RINSE 60 ML BOTTLE SWISH/SPIT SCH ×2 (09:07→20:50)
[2021-12-16] MEDS: AMIODARONE INJ 450 MG in DEXTROSE 5% 241 ML IV SCH (09:30)
[2021-12-16] MEDS: PIPERACILLIN/TAZOBACTAM 3,375 MG in SODIUM CHLORIDE 0.9% 100 ML IV SCH ×2 (11:17→22:19)
[2021-12-16] MEDS ORDERED: INSULIN GLARGINE 100 UNIT/ML SUBCUT ONE (13:09)
[2021-12-16] MEDS: AMIODARONE 200 MG TABLET PO SCH ×2 (13:27→20:49)
[2021-12-16] MEDS: SODIUM CHLORIDE 0.9% 1,000 ML IV SCH (13:50)
[2021-12-16] MEDS: VECURONIUM 10 MG VIAL IV PRN (16:05)
[2021-12-17] MEDS: LEVALBUTEROL 1.25 MG/3 ML NEB RESP TX SCH ×4 (00:02→19:48)
[2021-12-17] MEDS: VECURONIUM 10 MG VIAL IV PRN ×2 (00:48→19:41)
[2021-12-17] MEDS: PHENYLEPHRINE DRIP 40 MG/250 ML PREMIX IV PRN ×2 (01:20→11:10)
[2021-12-17] MEDS: DEXMEDETOMIDINE 400 MCG in SODIUM CHLORIDE 0.9% 96 ML IV PRN ×3 (01:44→17:10)
[2021-12-17] MEDS: FUROSEMIDE INJ 100 MG in SODIUM CHLORIDE 0.9% 90 ML IV SCH ×6 (01:52→19:00)
[2021-12-17] MEDS: MIDAZOLAM 2 MG/2 ML VIAL IV PRN ×2 (03:17→18:20)
[2021-12-17] MEDS: INSULIN REGULAR 100 UNIT/ML SUBCUT PRN (05:07)
[2021-12-17] MEDS: methylPREDNISolone SOD SUC 40 MG/1 ML VIAL IV SCH ×3 (05:07→20:59)
[2021-12-17 05:12] LABS: Basophils # 0.1 10*3/uL (0.0-0.2); Basophils % 0.3 % (0.0-0.8); Hemoglobin 9.2 GM/DL (14.0-18.0); Immature Granulocytes % 0.9 %; Immature Granulocytes Absolute 0.23 #; Lymphocytes # 0.5 10*3/uL (1.4-4.0); Mean Corpuscular HGB Conc 31.7 GM/DL (32-36); Mean Corpuscular Volume 94.8 FL (87-102); Mean Platelet Volume 12.8 FL (9.6-12.0); Monocytes # 1.3 10*3/uL (0.11-0.8); Monocytes % 4.9 % (1.7-12.7); NRBC # 0.41 10*3/uL; Neutrophils % 91.9 % (38.7-73.9); Platelet Count 212 T/CUMM (130-400); Red Blood Count 3.06 MC/CUMM (3.8-5.5); Red Cell Distribution Width 15.2 % (9.3-17.3)
[2021-12-17 05:31] LABS: Band Neutrophils 1 % (0-10); Lymphocytes 1 % (20-55); Nucleated Red Blood Cells 3 (0-5); Total Cells Counted 100
[2021-12-17 05:32] LABS: Albumin 1.9 G/DL (3.4-5.0); Bilirubin,Total 0.5 MG/DL (0.20-1.00); Calcium 6.9 MG/DL (8.5-10.1); Microcytosis 1+; Osmolality,Calculated 347.3 MOS/KG (273-304); Polychromasia Slight; Potassium 3.5 MMOL/L (3.5-5.1); Total Protein 5.8 G/DL (6.4-8.2)
[2021-12-17 05:33] LABS: Platelet Estimate Normal
[2021-12-17 05:42] LABS: ABG Base Excess 1.1 MMOL/L (-2.5-2.5); ABG HCO3 25.4 MMOL/L (20-26); ABG Oxygen Saturation 98.6 % (95-100); ABG PCO2 47.4 MM HG (35-48); ABG PH 7.361 (7.35-7.45); ABG TCO2 24.8 MMOL/L (23-27)
[2021-12-17] MEDS: CHLORHEXIDINE 0.12% ORAL RINSE 60 ML BOTTLE SWISH/SPIT SCH ×2 (08:00→21:02)
[2021-12-17] MEDS: PANTOPRAZOLE 40 MG VIAL IV SCH (08:15)
[2021-12-17] MEDS: INSULIN REGULAR 100 UNIT/ML SUBCUT SCH ×5 (08:15→23:57)
[2021-12-17] MEDS: INSULIN GLARGINE 100 UNIT/ML SUBCUT SCH ×3 (08:15→20:58)
[2021-12-17] MEDS: AMIODARONE 200 MG TABLET PO SCH (08:20)
[2021-12-17] MEDS: ASPIRIN 325 MG TABLET PO SCH (08:20)
[2021-12-17] MEDS: METOPROLOL TARTRATE 25 MG TABLET PO SCH ×2 (08:20→21:02)
[2021-12-17] MEDS: PIPERACILLIN/TAZOBACTAM 3,375 MG in SODIUM CHLORIDE 0.9% 100 ML IV SCH ×2 (08:25→22:39)
[2021-12-17] MEDS: SODIUM CHLORIDE 0.9% 1,000 ML IV SCH (08:25)
[2021-12-17] MEDS ORDERED: AMIODARONE 150 MG/3 ML VIAL ONE (18:36)
[2021-12-17] MEDS ORDERED: AMIODARONE 450 MG/9 ML VIAL IV ONE (18:36)
[2021-12-17] MEDS ORDERED: DILTIAZEM 25 MG/5 ML VIAL IV ONE (18:37)
[2021-12-17] MEDS: DILTIAZEM INJ 100 MG in SODIUM CHLORIDE 0.9% 100 ML IV SCH (18:50)
[2021-12-17] MEDS ORDERED: AMIODARONE INJ 100 MG in DEXTROSE 5% 100 ML IV ONE (19:00)
[2021-12-17] MEDS ORDERED: DILTIAZEM 50 MG/10 ML VIAL IV ONE (19:00)
[2021-12-17] MEDS ORDERED: AMIODARONE INJ 450 MG in DEXTROSE 5% 241 ML IV SCH (19:10)
[2021-12-17] MEDS: MORPHINE 2 MG/1 ML SYRINGE IV PRN (19:24)
[2021-12-17 19:44] LABS: ABG Base Excess -1.1 MMOL/L (-2.5-2.5); ABG HCO3 23.5 MMOL/L (20-26); ABG Oxygen Saturation 96.7 % (95-100); ABG PCO2 45.6 MM HG (35-48); ABG PH 7.343 (7.35-7.45); ABG TCO2 22.8 MMOL/L (23-27); Glucose Heart Surgery 300 MG/DL (74-106); Hematocrit Heart Surgery 28.9 PERCENT (42-52); Hemoglobin Heart Surgery 9.3 G/DL (14.0-18.0); Potassium Heart/CVR 3.6 MMOL/L (3.5-5.1)
[2021-12-17] MEDS ORDERED: METOPROLOL TARTRATE 5 MG/5 ML VIAL IV ONE (20:00)
[2021-12-17] MEDS ORDERED: FUROSEMIDE 40 MG/4 ML VIAL IV ONE (22:28)
[2021-12-18] MEDS: LEVALBUTEROL 1.25 MG/3 ML NEB RESP TX SCH ×4 (00:44→20:13)
[2021-12-18] MEDS: PHENYLEPHRINE DRIP 40 MG/250 ML PREMIX IV PRN (00:47)
[2021-12-18] MEDS: DEXMEDETOMIDINE 400 MCG in SODIUM CHLORIDE 0.9% 96 ML IV PRN ×4 (00:48→18:20)
[2021-12-18] MEDS: FUROSEMIDE INJ 100 MG in SODIUM CHLORIDE 0.9% 90 ML IV SCH ×5 (00:51→22:11)
[2021-12-18] MEDS ORDERED: AMIODARONE 450 MG/9 ML VIAL IV ONE (02:28)
[2021-12-18] MEDS: AMIODARONE INJ 450 MG in DEXTROSE 5% 241 ML IV SCH ×2 (02:34→17:20)
[2021-12-18 04:25] LABS: ABG HCO3 24.4 MMOL/L (20-26); ABG Oxygen Saturation 99.2 % (95-100); ABG PCO2 40.2 MM HG (35-48); ABG PH 7.397 (7.35-7.45)
[2021-12-18 04:39] LABS: Basophils # 0.1 10*3/uL (0.0-0.2); Basophils % 0.2 % (0.0-0.8); Hematocrit 26.9 VOL% (42.0-52.0); Hemoglobin 8.5 GM/DL (14.0-18.0); Immature Granulocytes % 3.9 %; Immature Granulocytes Absolute 0.96 #; Lymphocytes # 0.5 10*3/uL (1.4-4.0); Lymphocytes % 1.8 % (21.2-54.2); Mean Corpuscular HGB Conc 31.6 GM/DL (32-36); Mean Corpuscular Volume 95.1 FL (87-102); Mean Platelet Volume 13.1 FL (9.6-12.0); Monocytes # 1.2 10*3/uL (0.11-0.8); Monocytes % 4.9 % (1.7-12.7); NRBC # 0.52 10*3/uL; Neutrophils % 89.2 % (38.7-73.9); Platelet Count 213 T/CUMM (130-400); Red Blood Count 2.83 MC/CUMM (3.8-5.5); Red Cell Distribution Width 15.4 % (9.3-17.3); White Blood Count 24.7 T/CUMM (4-12)
[2021-12-18 04:46] LABS: Calcium 6.8 MG/DL (8.5-10.1); Osmolality,Calculated 366.4 MOS/KG (273-304); Potassium 3.8 MMOL/L (3.5-5.1)
[2021-12-18] MEDS: methylPREDNISolone SOD SUC 40 MG/1 ML VIAL IV SCH ×3 (04:57→20:10)
[2021-12-18] MEDS: INSULIN REGULAR 100 UNIT/ML SUBCUT SCH (04:57)
[2021-12-18 05:00] LABS: Lymphocytes 2 % (20-55); Nucleated Red Blood Cells 1 (0-5); Platelet Estimate Adequate; Total Cells Counted 100
[2021-12-18] MEDS: CHLORHEXIDINE 0.12% ORAL RINSE 60 ML BOTTLE SWISH/SPIT SCH ×2 (08:15→20:06)
[2021-12-18] MEDS: INSULIN REGULAR DRIP 100 ML IV PRN ×2 (08:20→18:30)
[2021-12-18] MEDS: PANTOPRAZOLE 40 MG VIAL IV SCH (08:25)
[2021-12-18] MEDS: INSULIN GLARGINE 100 UNIT/ML SUBCUT SCH ×2 (08:25→20:05)
[2021-12-18] MEDS: MORPHINE 2 MG/1 ML SYRINGE IV PRN ×2 (08:25→20:06)
[2021-12-18] MEDS: METOPROLOL TARTRATE 25 MG TABLET PO SCH ×2 (08:35→20:05)
[2021-12-18] MEDS: ASPIRIN 325 MG TABLET PO SCH (08:35)
[2021-12-18] MEDS: PIPERACILLIN/TAZOBACTAM 3,375 MG in SODIUM CHLORIDE 0.9% 100 ML IV SCH ×2 (08:40→22:10)
[2021-12-18] MEDS: HEPARIN DRIP 25,000 UNITS/500 ML PREMIX IV SCH (17:40)
[2021-12-18] MEDS: DILTIAZEM INJ 100 MG in SODIUM CHLORIDE 0.9% 100 ML IV SCH (19:56)
[2021-12-18] MEDS: MIDAZOLAM 2 MG/2 ML VIAL IV PRN (22:11)
[2021-12-19] MEDS: DEXMEDETOMIDINE 400 MCG in SODIUM CHLORIDE 0.9% 96 ML IV PRN ×4 (00:30→17:45)
[2021-12-19] MEDS: FUROSEMIDE INJ 100 MG in SODIUM CHLORIDE 0.9% 90 ML IV SCH ×7 (01:20→22:59)
[2021-12-19 03:30] LABS: ABG Base Excess 1.5 MMOL/L (-2.5-2.5); ABG HCO3 25.8 MMOL/L (20-26); ABG Oxygen Saturation 97.7 % (95-100); ABG PH 7.398 (7.35-7.45); ABG PO2 98.3 MM HG (80-95); ABG TCO2 24.9 MMOL/L (23-27)
[2021-12-19 03:31] LABS: Basophils # 0.1 10*3/uL (0.0-0.2); Basophils % 0.4 % (0.0-0.8); Eosinophils # 0.1 10*3/uL (0.0-0.87); Eosinophils % 0.3 % (0.00-10.9); Hematocrit 23.2 VOL% (42.0-52.0); Hemoglobin 7.3 GM/DL (14.0-18.0); Immature Granulocytes % 8.7 %; Immature Granulocytes Absolute 2.14 #; Lymphocytes # 0.7 10*3/uL (1.4-4.0); Lymphocytes % 2.6 % (21.2-54.2); Mean Corpuscular HGB Conc 31.5 GM/DL (32-36); Mean Corpuscular Volume 94.3 FL (87-102); Mean Platelet Volume 12.4 FL (9.6-12.0); Monocytes # 1.4 10*3/uL (0.11-0.8); Monocytes % 5.7 % (1.7-12.7); Neutrophils % 82.3 % (38.7-73.9); Platelet Count 209 T/CUMM (130-400); Red Blood Count 2.46 MC/CUMM (3.8-5.5); Red Cell Distribution Width 15.6 % (9.3-17.3); White Blood Count 24.6 T/CUMM (4-12)
[2021-12-19 03:51] LABS: Band Neutrophils 2 % (0-10); Lymphocytes 3 % (20-55); Nucleated Red Blood Cells 3 (0-5); Promyelocytes 2 %; Total Cells Counted 100
[2021-12-19 03:52] LABS: Microcytosis Slight
[2021-12-19 04:08] LABS: Calcium 6.4 MG/DL (8.5-10.1); Osmolality,Calculated 370.7 MOS/KG (273-304); Potassium 3.7 MMOL/L (3.5-5.1)
[2021-12-19] MEDS: MIDAZOLAM 2 MG/2 ML VIAL IV PRN ×5 (05:46→19:05)
[2021-12-19] MEDS: methylPREDNISolone SOD SUC 40 MG/1 ML VIAL IV SCH ×3 (05:48→22:04)
[2021-12-19] MEDS: LEVALBUTEROL 1.25 MG/3 ML NEB RESP TX SCH ×4 (06:53→19:36)
[2021-12-19] MEDS: AMIODARONE INJ 450 MG in DEXTROSE 5% 241 ML IV SCH (08:37)
[2021-12-19] MEDS: ASPIRIN 325 MG TABLET PO SCH (09:33)
[2021-12-19] MEDS: PANTOPRAZOLE 40 MG VIAL IV SCH (09:34)
[2021-12-19] MEDS: CHLORHEXIDINE 0.12% ORAL RINSE 60 ML BOTTLE SWISH/SPIT SCH ×2 (09:34→22:04)
[2021-12-19] MEDS: INSULIN GLARGINE 100 UNIT/ML SUBCUT SCH ×2 (09:34→22:03)
[2021-12-19] MEDS: METOPROLOL TARTRATE 25 MG TABLET PO SCH ×2 (09:34→22:04)
[2021-12-19] MEDS: PIPERACILLIN/TAZOBACTAM 3,375 MG in SODIUM CHLORIDE 0.9% 100 ML IV SCH ×2 (09:35→22:04)
[2021-12-19] MEDS: INSULIN REGULAR DRIP 100 ML IV PRN (09:37)
[2021-12-19] MEDS: HEPARIN DRIP 25,000 UNITS/500 ML PREMIX IV SCH ×2 (12:12→13:07)
[2021-12-19] MEDS: MORPHINE 2 MG/1 ML SYRINGE IV PRN (13:26)
[2021-12-19] MEDS: DILTIAZEM INJ 100 MG in SODIUM CHLORIDE 0.9% 100 ML IV SCH (22:03)
[2021-12-20] MEDS: DEXMEDETOMIDINE 400 MCG in SODIUM CHLORIDE 0.9% 96 ML IV PRN ×4 (00:50→23:12)
[2021-12-20] MEDS: AMIODARONE INJ 450 MG in DEXTROSE 5% 241 ML IV SCH ×2 (02:07→18:40)
[2021-12-20] MEDS: LEVALBUTEROL 1.25 MG/3 ML NEB RESP TX SCH ×4 (02:30→19:28)
[2021-12-20] MEDS: FUROSEMIDE INJ 100 MG in SODIUM CHLORIDE 0.9% 90 ML IV SCH ×7 (02:49→22:19)
[2021-12-20] MEDS: MIDAZOLAM 2 MG/2 ML VIAL IV PRN ×3 (03:02→14:35)
[2021-12-20 04:53] LABS: ABG Base Excess -0.7 MMOL/L (-2.5-2.5); ABG HCO3 23.8 MMOL/L (20-26); ABG Oxygen Saturation 98.4 % (95-100); ABG PCO2 47.3 MM HG (35-48); ABG PH 7.334 (7.35-7.45); ABG TCO2 24.1 MMOL/L (23-27)
[2021-12-20 04:55] LABS: Basophils % 0.1 % (0.0-0.8); Hematocrit 23.8 VOL% (42.0-52.0); Hemoglobin 7.6 GM/DL (14.0-18.0); Immature Granulocytes % 18.8 %; Immature Granulocytes Absolute 5.78 #; Lymphocytes # 1.4 10*3/uL (1.4-4.0); Lymphocytes % 4.5 % (21.2-54.2); Mean Corpuscular HGB Conc 31.9 GM/DL (32-36); Mean Corpuscular Volume 96.4 FL (87-102); Mean Platelet Volume 13.5 FL (9.6-12.0); Monocytes # 2.1 10*3/uL (0.11-0.8); Monocytes % 6.7 % (1.7-12.7); NRBC # 2.07 10*3/uL; Neutrophils % 69.9 % (38.7-73.9); Platelet Count 256 T/CUMM (130-400); Red Blood Count 2.47 MC/CUMM (3.8-5.5); Red Cell Distribution Width 16.3 % (9.3-17.3); White Blood Count 30.8 T/CUMM (4-12)
[2021-12-20] MEDS: methylPREDNISolone SOD SUC 40 MG/1 ML VIAL IV SCH ×3 (05:05→21:08)
[2021-12-20 05:12] LABS: Calcium 6.9 MG/DL (8.5-10.1); Osmolality,Calculated 377.9 MOS/KG (273-304); Potassium 4.4 MMOL/L (3.5-5.1)
[2021-12-20] MEDS: INSULIN REGULAR DRIP 100 ML IV PRN (05:15)
[2021-12-20 05:16] LABS: Band Neutrophils 1 % (0-10); Lymphocytes 10 % (20-55); Metamyelocytes 3 %; Myelocytes 3 %; Nucleated Red Blood Cells 10 (0-5); Polychromasia Slight; Promyelocytes 2 %; Total Cells Counted 100
[2021-12-20 05:17] LABS: Anisocytosis 1+; Microcytosis 1+; Target Cells Slight
[2021-12-20] MEDS: MIDAZOLAM 10 MG/2 ML VIAL IV PRN ×2 (07:26→10:47)
[2021-12-20 07:49] LABS: ABG Base Excess -2.3 MMOL/L (-2.5-2.5); ABG HCO3 22.5 MMOL/L (20-26); ABG Oxygen Saturation 99.5 % (95-100); ABG PCO2 57.1 MM HG (35-48); ABG PH 7.251 (7.35-7.45); ABG TCO2 24.1 MMOL/L (23-27)
[2021-12-20] MEDS: ALBUMIN 5% 12.5 GM/250 ML VIAL IV PRN (07:50)
[2021-12-20] MEDS ORDERED: DILTIAZEM 50 MG/10 ML VIAL IV ONE (07:52)
[2021-12-20] MEDS: DILTIAZEM INJ 100 MG in SODIUM CHLORIDE 0.9% 100 ML IV SCH ×2 (07:59→22:19)
[2021-12-20] MEDS ORDERED: DILTIAZEM 25 MG/5 ML VIAL IV ONE (09:00)
[2021-12-20] MEDS: PIPERACILLIN/TAZOBACTAM 3,375 MG in SODIUM CHLORIDE 0.9% 100 ML IV SCH ×2 (09:14→21:08)
[2021-12-20] MEDS: PANTOPRAZOLE 40 MG VIAL IV SCH (09:15)
[2021-12-20] MEDS: INSULIN GLARGINE 100 UNIT/ML SUBCUT SCH ×2 (09:16→21:07)
[2021-12-20] MEDS: CHLORHEXIDINE 0.12% ORAL RINSE 60 ML BOTTLE SWISH/SPIT SCH ×2 (09:17→21:08)
[2021-12-20] MEDS: ASPIRIN 325 MG TABLET PO SCH (09:17)
[2021-12-20] MEDS: METOPROLOL TARTRATE 25 MG TABLET PO SCH ×2 (09:17→21:08)
[2021-12-20] MEDS: HEPARIN DRIP 25,000 UNITS/500 ML PREMIX IV SCH (10:20)
[2021-12-20] MEDS: PHENYLEPHRINE DRIP 40 MG/250 ML PREMIX IV PRN (11:30)
[2021-12-20 12:10] LABS: Hepatitis B Core IgM Quant 0.13 Index; Hepatitis B Surface Ag Quant 0.17 Index; Hepatitis B Surface Ag Result Non-Reactive (NonReactive); Hepatitis C Virus Ab Quant < 0.02 Index; Hepatitis C Virus Ab Result Non-Reactive (NonReactive)
[2021-12-20 13:29] LABS: Hematocrit 22.9 VOL% (42.0-52.0); Hemoglobin 7.1 GM/DL (14.0-18.0)
[2021-12-20] MEDS: PHENYLEPHRINE INJ 160 MG in SODIUM CHLORIDE 0.9% 234 ML IV PRN (13:30)
[2021-12-20] MEDS ORDERED: HEPARIN 10,000 UNIT/10 ML VIAL IV SCH (14:30)
[2021-12-20] MEDS ORDERED: PROTAMINE SULFATE 50 MG/5 ML VIAL IV ONE (16:00)
[2021-12-20 21:59] LABS: Hematocrit 24.8 VOL% (42.0-52.0); Hemoglobin 8.4 GM/DL (14.0-18.0)
[2021-12-21] MEDS: INSULIN REGULAR DRIP 100 ML IV PRN
[2021-12-21] MEDS: LEVALBUTEROL 1.25 MG/3 ML NEB RESP TX SCH ×4 (00:01→19:10)
[2021-12-21] MEDS: FUROSEMIDE INJ 100 MG in SODIUM CHLORIDE 0.9% 90 ML IV SCH ×2 (01:15→07:15)
[2021-12-21] MEDS: MIDAZOLAM 2 MG/2 ML VIAL IV PRN (03:44)
[2021-12-21 04:34] LABS: ABG Base Excess -2.1 MMOL/L (-2.5-2.5); ABG HCO3 22.7 MMOL/L (20-26); ABG Oxygen Saturation 97.8 % (95-100); ABG PH 7.375 (7.35-7.45); ABG TCO2 21.2 MMOL/L (23-27)
[2021-12-21 04:40] LABS: Basophils % 0.1 % (0.0-0.8); Hematocrit 25.3 VOL% (42.0-52.0); Hemoglobin 8.5 GM/DL (14.0-18.0); Immature Granulocytes % 14.5 %; Immature Granulocytes Absolute 5.45 #; Lymphocytes # 1.6 10*3/uL (1.4-4.0); Lymphocytes % 4.3 % (21.2-54.2); Mean Corpuscular HGB Conc 33.6 GM/DL (32-36); Mean Platelet Volume 13.5 FL (9.6-12.0); Monocytes # 2.1 10*3/uL (0.11-0.8); Monocytes % 5.4 % (1.7-12.7); NRBC # 2.28 10*3/uL; Neutrophils % 75.7 % (38.7-73.9); Platelet Count 196 T/CUMM (130-400); Red Blood Count 2.75 MC/CUMM (3.8-5.5); Red Cell Distribution Width 15.9 % (9.3-17.3); White Blood Count 37.7 T/CUMM (4-12)
[2021-12-21] MEDS: methylPREDNISolone SOD SUC 40 MG/1 ML VIAL IV SCH ×2 (04:40→16:45)
[2021-12-21 04:49] LABS: PT Patient Result 10.6 SECS (10.5-12.0); Partial Thromboplastin Time 23.1 SECS (23.8-32.1)
[2021-12-21] MEDS: DEXMEDETOMIDINE 400 MCG in SODIUM CHLORIDE 0.9% 96 ML IV PRN ×4 (04:49→23:34)
[2021-12-21 04:57] LABS: Bilirubin,Total 0.6 MG/DL (0.20-1.00); Calcium 7.2 MG/DL (8.5-10.1); Osmolality,Calculated 362.3 MOS/KG (273-304)
[2021-12-21 05:03] LABS: Band Neutrophils 2 % (0-10); Lymphocytes 6 % (20-55); Nucleated Red Blood Cells 4 (0-5); Platelet Estimate Adequate; Total Cells Counted 100
[2021-12-21] MEDS: AMIODARONE INJ 450 MG in DEXTROSE 5% 241 ML IV SCH (07:00)
[2021-12-21] MEDS: ASPIRIN 325 MG TABLET PO SCH (07:45)
[2021-12-21] MEDS: PANTOPRAZOLE 40 MG VIAL IV SCH (07:45)
[2021-12-21] MEDS: METOPROLOL TARTRATE 25 MG TABLET PO SCH ×2 (07:45→21:25)
[2021-12-21] MEDS: CHLORHEXIDINE 0.12% ORAL RINSE 60 ML BOTTLE SWISH/SPIT SCH ×2 (07:50→21:25)
[2021-12-21] MEDS ORDERED: SODIUM CHLORIDE 0.9% 1,000 ML IV SCH (08:00)
[2021-12-21] MEDS: INSULIN GLARGINE 100 UNIT/ML SUBCUT SCH ×2 (09:00→21:26)
[2021-12-21] MEDS: PIPERACILLIN/TAZOBACTAM 3,375 MG in SODIUM CHLORIDE 0.9% 100 ML IV SCH ×2 (09:05→21:25)
[2021-12-21] MEDS: AMIODARONE 200 MG TABLET PO SCH ×2 (09:15→21:25)
[2021-12-21] MEDS ORDERED: ROCURONIUM 100 MG/10 ML VIAL IV ONE (13:29)
[2021-12-21] MEDS: VECURONIUM 10 MG VIAL IV PRN (13:40)
[2021-12-21] MEDS: MIDAZOLAM 10 MG/2 ML VIAL IV PRN (13:40)
[2021-12-21] MEDS: PHENYLEPHRINE INJ 160 MG in SODIUM CHLORIDE 0.9% 234 ML IV PRN (14:20)
[2021-12-22] MEDS: ACETAMINOPHEN 325 MG/10.15 ML UDCUP NG PRN ×2 (00:08→21:17)
[2021-12-22] MEDS: LEVALBUTEROL 1.25 MG/3 ML NEB RESP TX SCH ×4 (01:00→18:22)
[2021-12-22 04:20] LABS: ABG Base Excess -2.7 MMOL/L (-2.5-2.5); ABG HCO3 22.1 MMOL/L (20-26); ABG Oxygen Saturation 99.4 % (95-100); ABG PCO2 30.7 MM HG (35-48); ABG PH 7.442 (7.35-7.45); ABG TCO2 20.1 MMOL/L (23-27)
[2021-12-22 04:33] LABS: Basophils # 0.2 10*3/uL (0.0-0.2); Basophils % 0.4 % (0.0-0.8); Hemoglobin 7.2 GM/DL (14.0-18.0); Immature Granulocytes % 12.5 %; Immature Granulocytes Absolute 5.29 #; Lymphocytes # 0.9 10*3/uL (1.4-4.0); Lymphocytes % 2.2 % (21.2-54.2); Mean Corpuscular HGB Conc 32.7 GM/DL (32-36); Mean Corpuscular Volume 92.4 FL (87-102); Mean Platelet Volume 13.6 FL (9.6-12.0); Monocytes # 1.6 10*3/uL (0.11-0.8); Monocytes % 3.8 % (1.7-12.7); NRBC # 1.01 10*3/uL; Neutrophils % 81.1 % (38.7-73.9); Platelet Count 201 T/CUMM (130-400); Red Blood Count 2.38 MC/CUMM (3.8-5.5); Red Cell Distribution Width 16.2 % (9.3-17.3)
[2021-12-22 04:38] LABS: White Blood Count 42.3 T/CUMM (4-12)
[2021-12-22 04:47] LABS: Calcium 7.7 MG/DL (8.5-10.1); Osmolality,Calculated 339.7 MOS/KG (273-304); Potassium 4.5 MMOL/L (3.5-5.1)
[2021-12-22 04:52] LABS: Band Neutrophils 1 % (0-10); Hypochromia 1+; Lymphocytes 2 % (20-55); Nucleated Red Blood Cells 3 (0-5); Platelet Estimate Normal
[2021-12-22 04:53] LABS: Microcytosis Slight; Total Cells Counted 100
[2021-12-22] MEDS: DEXMEDETOMIDINE 400 MCG in SODIUM CHLORIDE 0.9% 96 ML IV PRN ×3 (05:25→19:00)
[2021-12-22] MEDS: methylPREDNISolone SOD SUC 40 MG/1 ML VIAL IV SCH (05:30)
[2021-12-22] MEDS: DILTIAZEM INJ 100 MG in SODIUM CHLORIDE 0.9% 100 ML IV SCH ×2 (05:59→23:25)
[2021-12-22] MEDS: INSULIN GLARGINE 100 UNIT/ML SUBCUT SCH ×2 (08:04→21:17)
[2021-12-22] MEDS: ASPIRIN 325 MG TABLET PO SCH (08:04)
[2021-12-22] MEDS: AMIODARONE 200 MG TABLET PO SCH ×2 (08:04→21:20)
[2021-12-22] MEDS: METOPROLOL TARTRATE 25 MG TABLET PO SCH ×2 (08:05→21:16)
[2021-12-22] MEDS: PANTOPRAZOLE 40 MG VIAL IV SCH (08:05)
[2021-12-22] MEDS: CHLORHEXIDINE 0.12% ORAL RINSE 60 ML BOTTLE SWISH/SPIT SCH ×2 (08:05→21:17)
[2021-12-22] MEDS ORDERED: GENTAMICIN INJ 160 MG in SODIUM CHLORIDE 0.9% 100 ML IV SCH (08:30)
[2021-12-22] MEDS: PIPERACILLIN/TAZOBACTAM 3,375 MG in SODIUM CHLORIDE 0.9% 100 ML IV SCH ×2 (09:05→21:21)
[2021-12-22] MEDS ORDERED: GENTAMICIN INJ 160 MG in SODIUM CHLORIDE 0.9% 100 ML IV PRN (09:18)
[2021-12-22] MEDS: MORPHINE 2 MG/1 ML SYRINGE IV PRN ×2 (09:24→12:29)
[2021-12-22] MEDS ORDERED: GENTAMICIN INJ 240 MG in SODIUM CHLORIDE 0.9% 100 ML IV SCH (17:00)
[2021-12-22] MEDS: MIDAZOLAM 2 MG/2 ML VIAL IV PRN (20:00)
[2021-12-22] MEDS ORDERED: GLUCAGON 1 MG VIAL IM PRN (23:21)
[2021-12-23] MEDS: LEVALBUTEROL 1.25 MG/3 ML NEB RESP TX SCH ×4 (00:02→19:16)
[2021-12-23] MEDS: INSULIN REGULAR 100 UNIT/ML SUBCUT SCH ×2 (00:43→04:50)
[2021-12-23] MEDS: DEXMEDETOMIDINE 400 MCG in SODIUM CHLORIDE 0.9% 96 ML IV PRN ×4 (02:29→23:55)
[2021-12-23 03:50] LABS: ABG Base Excess -0.9 MMOL/L (-2.5-2.5); ABG HCO3 23.7 MMOL/L (20-26); ABG Oxygen Saturation 99.1 % (95-100); ABG PCO2 35.4 MM HG (35-48); ABG PH 7.425 (7.35-7.45); ABG TCO2 22.1 MMOL/L (23-27)
[2021-12-23 04:00] LABS: Basophils # 0.1 10*3/uL (0.0-0.2); Basophils % 0.2 % (0.0-0.8); Hematocrit 20.7 VOL% (42.0-52.0); Hemoglobin 6.7 GM/DL (14.0-18.0); Immature Granulocytes % 9.3 %; Immature Granulocytes Absolute 3.28 #; Lymphocytes # 0.6 10*3/uL (1.4-4.0); Lymphocytes % 1.7 % (21.2-54.2); Mean Corpuscular HGB Conc 32.4 GM/DL (32-36); Mean Platelet Volume 13.2 FL (9.6-12.0); Monocytes # 1.5 10*3/uL (0.11-0.8); Monocytes % 4.3 % (1.7-12.7); NRBC # 1.08 10*3/uL; Neutrophils % 84.5 % (38.7-73.9); Platelet Count 195 T/CUMM (130-400); Red Blood Count 2.18 MC/CUMM (3.8-5.5); Red Cell Distribution Width 16.2 % (9.3-17.3); White Blood Count 35.3 T/CUMM (4-12)
[2021-12-23 04:05] LABS: Calcium 8.2 MG/DL (8.5-10.1); Osmolality,Calculated 342.7 MOS/KG (273-304); Potassium 4.8 MMOL/L (3.5-5.1)
[2021-12-23 04:19] LABS: Lymphocytes 2 % (20-55); Metamyelocytes 2 %; Nucleated Red Blood Cells 1 (0-5); Total Cells Counted 100
[2021-12-23 04:20] LABS: Anisocytosis 1+; Microcytosis 1+; Platelet Estimate Adequate; Polychromasia Slight
[2021-12-23] MEDS: INSULIN REGULAR DRIP 100 ML IV PRN (06:45)
[2021-12-23] MEDS ORDERED: SODIUM CHLORIDE 0.9% 1,000 ML IV PRN (07:32)
[2021-12-23] MEDS: PANTOPRAZOLE 40 MG VIAL IV SCH (08:45)
[2021-12-23] MEDS: ASPIRIN 325 MG TABLET PO SCH (08:46)
[2021-12-23] MEDS: AMIODARONE 200 MG TABLET PO SCH ×2 (08:46→21:07)
[2021-12-23] MEDS: INSULIN GLARGINE 100 UNIT/ML SUBCUT SCH ×2 (08:46→21:08)
[2021-12-23] MEDS: METOPROLOL TARTRATE 25 MG TABLET PO SCH ×2 (08:46→21:07)
[2021-12-23] MEDS: CHLORHEXIDINE 0.12% ORAL RINSE 60 ML BOTTLE SWISH/SPIT SCH ×2 (09:29→21:08)
[2021-12-23] MEDS: PIPERACILLIN/TAZOBACTAM 3,375 MG in SODIUM CHLORIDE 0.9% 100 ML IV SCH ×2 (10:31→22:14)
[2021-12-23] MEDS: MORPHINE 2 MG/1 ML SYRINGE IV PRN ×2 (14:12→17:16)
[2021-12-24] MEDS: LEVALBUTEROL 1.25 MG/3 ML NEB RESP TX SCH ×4 (00:57→18:55)
[2021-12-24 03:39] LABS: Basophils # 0.1 10*3/uL (0.0-0.2); Basophils % 0.4 % (0.0-0.8); Eosinophils # 0.1 10*3/uL (0.0-0.87); Eosinophils % 0.4 % (0.00-10.9); Hematocrit 28.7 VOL% (42.0-52.0); Immature Granulocytes % 8.2 %; Immature Granulocytes Absolute 2.38 #; Lymphocytes # 0.5 10*3/uL (1.4-4.0); Lymphocytes % 1.5 % (21.2-54.2); Mean Corpuscular HGB Conc 33.4 GM/DL (32-36); Mean Corpuscular Volume 91.4 FL (87-102); Mean Platelet Volume 12.4 FL (9.6-12.0); Monocytes # 0.9 10*3/uL (0.11-0.8); Monocytes % 3.2 % (1.7-12.7); NRBC # 0.63 10*3/uL; Neutrophils % 86.3 % (38.7-73.9); Platelet Count 160 T/CUMM (130-400); Red Cell Distribution Width 16.9 % (9.3-17.3); White Blood Count 29.2 T/CUMM (4-12)
[2021-12-24 03:41] LABS: ABG Base Excess -1.1 MMOL/L (-2.5-2.5); ABG HCO3 23.5 MMOL/L (20-26); ABG Oxygen Saturation 99.3 % (95-100); ABG PCO2 31.1 MM HG (35-48); ABG TCO2 20.4 MMOL/L (23-27)
[2021-12-24 03:42] LABS: Hemoglobin 9.6 GM/DL (14.0-18.0); Red Blood Count 3.14 MC/CUMM (3.8-5.5)
[2021-12-24 03:57] LABS: Calcium 8.2 MG/DL (8.5-10.1); Osmolality,Calculated 356.1 MOS/KG (273-304); Potassium 4.4 MMOL/L (3.5-5.1)
[2021-12-24 04:03] LABS: Band Neutrophils 2 % (0-10); Lymphocytes 2 % (20-55); Metamyelocytes 1 %; Nucleated Red Blood Cells 5 (0-5); Total Cells Counted 100
[2021-12-24 04:04] LABS: Anisocytosis 1+; Microcytosis 1+; Polychromasia Slight
[2021-12-24] MEDS: DEXMEDETOMIDINE 400 MCG in SODIUM CHLORIDE 0.9% 96 ML IV PRN ×3 (06:06→20:25)
[2021-12-24] MEDS: MIDAZOLAM 2 MG/2 ML VIAL IV PRN ×2 (06:24→15:16)
[2021-12-24] MEDS: PANTOPRAZOLE 40 MG VIAL IV SCH (08:10)
[2021-12-24] MEDS: AMIODARONE 200 MG TABLET PO SCH ×2 (08:10→20:57)
[2021-12-24] MEDS: METOPROLOL TARTRATE 25 MG TABLET PO SCH ×2 (08:10→20:57)
[2021-12-24] MEDS: ASPIRIN 325 MG TABLET PO SCH (08:10)
[2021-12-24] MEDS: INSULIN GLARGINE 100 UNIT/ML SUBCUT SCH ×2 (08:10→21:00)
[2021-12-24] MEDS: CHLORHEXIDINE 0.12% ORAL RINSE 60 ML BOTTLE SWISH/SPIT SCH ×2 (08:11→21:00)
[2021-12-24] MEDS: PIPERACILLIN/TAZOBACTAM 3,375 MG in SODIUM CHLORIDE 0.9% 100 ML IV SCH ×2 (09:35→22:48)
[2021-12-24] MEDS: MORPHINE 2 MG/1 ML SYRINGE IV PRN (11:05)
[2021-12-24] MEDS: INSULIN LISPRO 100 UNIT/ML SUBCUT SCH ×4 (12:41→23:48)
[2021-12-24 14:52] LABS: ABG Base Excess -2.1 MMOL/L (-2.5-2.5); ABG HCO3 22.6 MMOL/L (20-26); ABG Oxygen Saturation 95.2 % (95-100); ABG PCO2 34.1 MM HG (35-48); ABG PH 7.414 (7.35-7.45); ABG PO2 80.7 MM HG (80-95); ABG TCO2 19.9 MMOL/L (23-27)
[2021-12-24] MEDS ORDERED: GENTAMICIN INJ 160 MG in SODIUM CHLORIDE 0.9% 100 ML IV ONE (17:00)
[2021-12-25] MEDS: LEVALBUTEROL 1.25 MG/3 ML NEB RESP TX SCH ×4 (00:08→19:20)
[2021-12-25] MEDS: DEXMEDETOMIDINE 400 MCG in SODIUM CHLORIDE 0.9% 96 ML IV PRN ×3 (02:55→13:41)
[2021-12-25] MEDS: PHENYLEPHRINE INJ 160 MG in SODIUM CHLORIDE 0.9% 234 ML IV PRN (02:59)
[2021-12-25 04:26] LABS: ABG Base Excess -0.7 MMOL/L (-2.5-2.5); ABG HCO3 23.8 MMOL/L (20-26); ABG Oxygen Saturation 96.9 % (95-100); ABG PCO2 27.9 MM HG (35-48); ABG PH 7.498 (7.35-7.45); ABG PO2 87.8 MM HG (80-95); ABG TCO2 19.7 MMOL/L (23-27)
[2021-12-25 04:30] LABS: Basophils # 0.1 10*3/uL (0.0-0.2); Basophils % 0.3 % (0.0-0.8); Eosinophils # 0.2 10*3/uL (0.0-0.87); Eosinophils % 0.5 % (0.00-10.9); Hematocrit 29.9 VOL% (42.0-52.0); Hemoglobin 9.9 GM/DL (14.0-18.0); Immature Granulocytes % 5.2 %; Immature Granulocytes Absolute 1.76 #; Lymphocytes # 0.6 10*3/uL (1.4-4.0); Lymphocytes % 1.8 % (21.2-54.2); Mean Corpuscular HGB Conc 33.1 GM/DL (32-36); Mean Platelet Volume 12.5 FL (9.6-12.0); NRBC # 0.23 10*3/uL; Neutrophils % 89.2 % (38.7-73.9); Platelet Count 199 T/CUMM (130-400); Red Blood Count 3.25 MC/CUMM (3.8-5.5); Red Cell Distribution Width 17.1 % (9.3-17.3); White Blood Count 33.9 T/CUMM (4-12)
[2021-12-25 04:47] LABS: Calcium 8.5 MG/DL (8.5-10.1); Eosinophils 1 % (0-10); Lymphocytes 2 % (20-55); Nucleated Red Blood Cells 1 (0-5); Osmolality,Calculated 337.6 MOS/KG (273-304); Potassium 4.1 MMOL/L (3.5-5.1); Total Cells Counted 100
[2021-12-25 04:48] LABS: Anisocytosis 1+; Microcytosis 1+; Polychromasia Slight
[2021-12-25] MEDS: INSULIN LISPRO 100 UNIT/ML SUBCUT SCH ×5 (06:51→20:45)
[2021-12-25] MEDS: PANTOPRAZOLE 40 MG VIAL IV SCH (08:16)
[2021-12-25] MEDS: AMIODARONE 200 MG TABLET PO SCH ×2 (08:16→20:37)
[2021-12-25] MEDS: METOPROLOL TARTRATE 25 MG TABLET PO SCH ×2 (08:16→20:37)
[2021-12-25] MEDS: ASPIRIN 325 MG TABLET PO SCH (08:17)
[2021-12-25] MEDS: CHLORHEXIDINE 0.12% ORAL RINSE 60 ML BOTTLE SWISH/SPIT SCH ×2 (08:17→20:38)
[2021-12-25] MEDS: INSULIN GLARGINE 100 UNIT/ML SUBCUT SCH ×2 (08:17→20:37)
[2021-12-25] MEDS: PIPERACILLIN/TAZOBACTAM 3,375 MG in SODIUM CHLORIDE 0.9% 100 ML IV SCH ×2 (09:19→22:18)
[2021-12-25] MEDS ORDERED: LIDOCAINE 1%/EPI INJ 20 ML VIAL ONE (09:41)
[2021-12-25] MEDS: MORPHINE 2 MG/1 ML SYRINGE IV PRN ×2 (13:21→20:16)
[2021-12-25] MEDS ORDERED: MIDAZOLAM 2 MG/2 ML VIAL ONE (14:30)
[2021-12-25] MEDS ORDERED: ROCURONIUM 50 MG/5 ML VIAL IV ONE ×2 (14:30→15:12)
[2021-12-25] MEDS ORDERED: fentaNYL 100 MCG/2 ML VIAL ONE (14:49)
[2021-12-25] MEDS ORDERED: PHENYLEPHRINE 1 MG/10 ML SYRINGE IV ONE (14:57)
[2021-12-25] MEDS ORDERED: NOREPINEPHRINE 8 MG in SODIUM CHLORIDE 0.9% 242 ML IV PRN (15:49)
[2021-12-25] MEDS ORDERED: SODIUM CHLORIDE 0.9% 250 ML IV ONE (19:09)
[2021-12-26] MEDS: INSULIN LISPRO 100 UNIT/ML SUBCUT SCH ×6 (00:18→20:19)
[2021-12-26] MEDS: LEVALBUTEROL 1.25 MG/3 ML NEB RESP TX SCH ×4 (00:35→19:12)
[2021-12-26 04:38] LABS: ABG Base Excess -3.4 MMOL/L (-2.5-2.5); ABG HCO3 21.6 MMOL/L (20-26); ABG Oxygen Saturation 98.5 % (95-100); ABG PCO2 32.9 MM HG (35-48); ABG PH 7.406 (7.35-7.45); ABG TCO2 19.1 MMOL/L (23-27); Basophils % 0.1 % (0.0-0.8); Eosinophils # 0.1 10*3/uL (0.0-0.87); Eosinophils % 0.3 % (0.00-10.9); Hematocrit 28.5 VOL% (42.0-52.0); Hemoglobin 9.2 GM/DL (14.0-18.0); Immature Granulocytes % 1.8 %; Lymphocytes # 0.3 10*3/uL (1.4-4.0); Lymphocytes % 1.2 % (21.2-54.2); Mean Corpuscular HGB Conc 32.3 GM/DL (32-36); Mean Corpuscular Volume 95.6 FL (87-102); Mean Platelet Volume 12.3 FL (9.6-12.0); Monocytes # 0.8 10*3/uL (0.11-0.8); Monocytes % 2.8 % (1.7-12.7); NRBC # 0.04 10*3/uL; Neutrophils % 93.8 % (38.7-73.9); Platelet Count 159 T/CUMM (130-400); Red Blood Count 2.98 MC/CUMM (3.8-5.5); Red Cell Distribution Width 17.2 % (9.3-17.3); White Blood Count 27.2 T/CUMM (4-12)
[2021-12-26 04:53] LABS: Calcium 8.5 MG/DL (8.5-10.1); Osmolality,Calculated 353.4 MOS/KG (273-304)
[2021-12-26] MEDS: MORPHINE 10 MG/1 ML VIAL IV PRN (04:54)
[2021-12-26 04:56] LABS: Band Neutrophils 1 % (0-10); Lymphocytes 4 % (20-55); Nucleated Red Blood Cells 1 (0-5); Total Cells Counted 100
[2021-12-26] MEDS: ACETAMINOPHEN 325 MG/10.15 ML UDCUP NG PRN (04:56)
[2021-12-26 04:57] LABS: Hypersegmented Neutrophil SLIGHT; Microcytosis 1+; Polychromasia Slight
[2021-12-26 04:58] LABS: Platelet Estimate Adequate
[2021-12-26] MEDS: INSULIN GLARGINE 100 UNIT/ML SUBCUT SCH ×2 (09:31→20:19)
[2021-12-26] MEDS: AMIODARONE 200 MG TABLET PO SCH ×2 (09:34→20:20)
[2021-12-26] MEDS: METOPROLOL TARTRATE 50 MG TABLET PO SCH ×2 (09:35→20:20)
[2021-12-26] MEDS: ASPIRIN 325 MG TABLET PO SCH (09:35)
[2021-12-26] MEDS: PANTOPRAZOLE 40 MG VIAL IV SCH (09:35)
[2021-12-26] MEDS: CHLORHEXIDINE 0.12% ORAL RINSE 60 ML BOTTLE SWISH/SPIT SCH ×2 (09:35→20:19)
[2021-12-26] MEDS: PIPERACILLIN/TAZOBACTAM 3,375 MG in SODIUM CHLORIDE 0.9% 100 ML IV SCH ×2 (09:49→22:56)
[2021-12-26] MEDS ORDERED: GENTAMICIN INJ 160 MG in SODIUM CHLORIDE 0.9% 100 ML IV ONE (17:00)
[2021-12-27] MEDS: LEVALBUTEROL 1.25 MG/3 ML NEB RESP TX SCH ×4 (00:34→19:10)
[2021-12-27] MEDS: INSULIN LISPRO 100 UNIT/ML SUBCUT SCH ×6 (01:04→20:31)
[2021-12-27] MEDS: MORPHINE 2 MG/1 ML SYRINGE IV PRN (03:01)
[2021-12-27] MEDS: MORPHINE 10 MG/1 ML VIAL IV PRN (03:40)
[2021-12-27 04:30] LABS: ABG HCO3 21.9 MMOL/L (20-26); ABG Oxygen Saturation 98.9 % (95-100); ABG PCO2 30.2 MM HG (35-48); ABG PH 7.439 (7.35-7.45)
[2021-12-27 04:32] LABS: Basophils % 0.1 % (0.0-0.8); Eosinophils # 0.1 10*3/uL (0.0-0.87); Eosinophils % 0.4 % (0.00-10.9); Hematocrit 26.2 VOL% (42.0-52.0); Hemoglobin 8.4 GM/DL (14.0-18.0); Immature Granulocytes % 1.2 %; Immature Granulocytes Absolute 0.31 #; Lymphocytes # 0.3 10*3/uL (1.4-4.0); Mean Corpuscular HGB Conc 32.1 GM/DL (32-36); Mean Corpuscular Volume 95.3 FL (87-102); Mean Platelet Volume 12.3 FL (9.6-12.0); Monocytes # 0.7 10*3/uL (0.11-0.8); Monocytes % 2.8 % (1.7-12.7); NRBC # 0.03 10*3/uL; Neutrophils % 94.5 % (38.7-73.9); Platelet Count 143 T/CUMM (130-400); Red Blood Count 2.75 MC/CUMM (3.8-5.5); Red Cell Distribution Width 16.5 % (9.3-17.3); White Blood Count 25.4 T/CUMM (4-12)
[2021-12-27 04:46] LABS: Calcium 8.1 MG/DL (8.5-10.1); Osmolality,Calculated 332.7 MOS/KG (273-304)
[2021-12-27 04:51] LABS: Hypochromia Slight; Lymphocytes 2 % (20-55); Platelet Estimate Adequate; Total Cells Counted 100
[2021-12-27] MEDS: INSULIN GLARGINE 100 UNIT/ML SUBCUT SCH ×2 (08:58→20:31)
[2021-12-27] MEDS: AMIODARONE 200 MG TABLET PO SCH ×2 (08:59→20:32)
[2021-12-27] MEDS: METOPROLOL TARTRATE 50 MG TABLET PO SCH ×2 (08:59→20:32)
[2021-12-27] MEDS: ASPIRIN 325 MG TABLET PO SCH (08:59)
[2021-12-27] MEDS: PANTOPRAZOLE 40 MG VIAL IV SCH (09:00)
[2021-12-27] MEDS: CHLORHEXIDINE 0.12% ORAL RINSE 60 ML BOTTLE SWISH/SPIT SCH ×2 (09:03→20:32)
[2021-12-27] MEDS: PIPERACILLIN/TAZOBACTAM 3,375 MG in SODIUM CHLORIDE 0.9% 100 ML IV SCH ×2 (09:04→22:08)
[2021-12-28] MEDS: INSULIN LISPRO 100 UNIT/ML SUBCUT SCH ×6 (00:24→20:23)
[2021-12-28] MEDS: LEVALBUTEROL 1.25 MG/3 ML NEB RESP TX SCH ×4 (00:35→18:49)
[2021-12-28 04:20] LABS: ABG Base Excess -2.5 MMOL/L (-2.5-2.5); ABG HCO3 22.4 MMOL/L (20-26); ABG Oxygen Saturation 99.5 % (95-100); ABG PCO2 36.5 MM HG (35-48); ABG TCO2 20.8 MMOL/L (23-27)
[2021-12-28 04:25] LABS: Basophils % 0.1 % (0.0-0.8); Eosinophils # 0.2 10*3/uL (0.0-0.87); Eosinophils % 0.7 % (0.00-10.9); Hematocrit 23.5 VOL% (42.0-52.0); Hemoglobin 7.6 GM/DL (14.0-18.0); Immature Granulocytes % 1.1 %; Immature Granulocytes Absolute 0.23 #; Lymphocytes # 0.4 10*3/uL (1.4-4.0); Lymphocytes % 1.7 % (21.2-54.2); Mean Corpuscular HGB Conc 32.3 GM/DL (32-36); Mean Corpuscular Volume 94.4 FL (87-102); Mean Platelet Volume 12.6 FL (9.6-12.0); Monocytes # 0.6 10*3/uL (0.11-0.8); Monocytes % 2.9 % (1.7-12.7); NRBC # 0.02 10*3/uL; Neutrophils % 93.5 % (38.7-73.9); Platelet Count 128 T/CUMM (130-400); Red Blood Count 2.49 MC/CUMM (3.8-5.5); White Blood Count 21.7 T/CUMM (4-12)
[2021-12-28 04:44] LABS: Alanine Aminotransferase 119 U/L (16-61); Albumin 1.3 G/DL (3.4-5.0); Alkaline Phosphatase 82 U/L (45-117); Aspartate Amino Transferase 66 U/L (0-37); Bilirubin,Total < 0.39 MG/DL (0.20-1.00); Blood Urea Nitrogen 148 MG/DL (7-18); Calcium 8.4 MG/DL (8.5-10.1); Carbon Dioxide 23 MMOL/L (21-32); Chloride 112 MMOL/L (98-107); Glucose 148 MG/DL (74-106); Hypochromia Slight; Lymphocytes 1 % (20-55); Microcytosis Slight; Osmolality,Calculated 340.6 MOS/KG (273-304); Potassium 4.3 MMOL/L (3.5-5.1); Sodium 146 MMOL/L (136-145); Total Cells Counted 100; Total Protein 5.3 G/DL (6.4-8.2)
[2021-12-28] MEDS: ASPIRIN 325 MG TABLET PO SCH (08:19)
[2021-12-28] MEDS: METOPROLOL TARTRATE 50 MG TABLET PO SCH ×2 (08:19→20:23)
[2021-12-28] MEDS: AMIODARONE 200 MG TABLET PO SCH ×2 (08:19→20:22)
[2021-12-28] MEDS: INSULIN GLARGINE 100 UNIT/ML SUBCUT SCH ×2 (08:20→20:23)
[2021-12-28] MEDS: PANTOPRAZOLE 40 MG VIAL IV SCH (08:21)
[2021-12-28] MEDS: CHLORHEXIDINE 0.12% ORAL RINSE 60 ML BOTTLE SWISH/SPIT SCH ×2 (08:21→20:24)
[2021-12-28] MEDS: PIPERACILLIN/TAZOBACTAM 3,375 MG in SODIUM CHLORIDE 0.9% 100 ML IV SCH ×2 (10:59→21:31)
[2021-12-28] MEDS ORDERED: GENTAMICIN INJ 160 MG in SODIUM CHLORIDE 0.9% 100 ML IV ONE (17:00)
[2021-12-28] MEDS: ACETAMINOPHEN 325 MG/10.15 ML UDCUP NG PRN (17:20)
[2021-12-29] MEDS: MORPHINE 2 MG/1 ML SYRINGE IV PRN (00:05)
[2021-12-29] MEDS: INSULIN LISPRO 100 UNIT/ML SUBCUT SCH ×7 (00:08→23:56)
[2021-12-29] MEDS: LEVALBUTEROL 1.25 MG/3 ML NEB RESP TX SCH ×4 (00:18→20:07)
[2021-12-29 04:02] LABS: Basophils % 0.1 % (0.0-0.8); Eosinophils # 0.1 10*3/uL (0.0-0.87); Eosinophils % 0.5 % (0.00-10.9); Hematocrit 23.9 VOL% (42.0-52.0); Hemoglobin 7.5 GM/DL (14.0-18.0); Immature Granulocytes % 1.1 %; Immature Granulocytes Absolute 0.22 #; Lymphocytes # 0.4 10*3/uL (1.4-4.0); Lymphocytes % 2.1 % (21.2-54.2); Mean Corpuscular HGB Conc 31.4 GM/DL (32-36); Mean Corpuscular Volume 95.2 FL (87-102); Mean Platelet Volume 12.5 FL (9.6-12.0); Monocytes # 0.6 10*3/uL (0.11-0.8); Monocytes % 3.2 % (1.7-12.7); NRBC # 0.03 10*3/uL; Platelet Count 129 T/CUMM (130-400); Red Blood Count 2.51 MC/CUMM (3.8-5.5); Red Cell Distribution Width 15.5 % (9.3-17.3)
[2021-12-29 04:20] LABS: Albumin 1.3 G/DL (3.4-5.0); Bilirubin,Total 0.4 MG/DL (0.20-1.00); Calcium 8.4 MG/DL (8.5-10.1); Potassium 4.3 MMOL/L (3.5-5.1); Total Protein 5.8 G/DL (6.4-8.2)
[2021-12-29 04:26] LABS: Eosinophils 1 % (0-10); Hypochromia 1+; Lymphocytes 4 % (20-55); Platelet Estimate Normal; Total Cells Counted 100
[2021-12-29 04:26] LABS: Arterial Base Excess iSTAT 0 MMOL/L (-2.5-2.5); Arterial Bicarbonate iSTAT 23.8 MMOL/L (20-26); Arterial O2 Saturation iSTAT 99 % (95-100); Arterial PCO2 iSTAT 36 MM HG (35-48); Arterial PO2 iSTAT 140 MM HG (80-95); Arterial Total CO2 iSTAT 25 MMO/L (23-27); Arterial pH iSTAT 7.435 (7.35-7.45)
[2021-12-29] MEDS ORDERED: LORazepam 2 MG/1 ML VIAL IV PRN (07:52)
[2021-12-29] MEDS: AMIODARONE 200 MG TABLET PO SCH ×2 (08:57→20:11)
[2021-12-29] MEDS: ASPIRIN 325 MG TABLET PO SCH (08:57)
[2021-12-29] MEDS: PANTOPRAZOLE 40 MG VIAL IV SCH (08:58)
[2021-12-29] MEDS: METOPROLOL TARTRATE 50 MG TABLET PO SCH ×2 (08:58→20:11)
[2021-12-29] MEDS: CHLORHEXIDINE 0.12% ORAL RINSE 60 ML BOTTLE SWISH/SPIT SCH ×2 (08:58→20:12)
[2021-12-29] MEDS: INSULIN GLARGINE 100 UNIT/ML SUBCUT SCH ×2 (08:59→20:12)
[2021-12-29] MEDS: PIPERACILLIN/TAZOBACTAM 3,375 MG in SODIUM CHLORIDE 0.9% 100 ML IV SCH ×2 (09:12→21:00)
[2021-12-30] MEDS: LEVALBUTEROL 1.25 MG/3 ML NEB RESP TX SCH ×4 (00:40→19:19)
[2021-12-30 04:05] LABS: Arterial Base Excess iSTAT -1 MMOL/L (-2.5-2.5); Arterial Bicarbonate iSTAT 22.6 MMOL/L (20-26); Arterial O2 Saturation iSTAT 99 % (95-100); Arterial PCO2 iSTAT 34 MM HG (35-48); Arterial PO2 iSTAT 148 MM HG (80-95); Arterial Total CO2 iSTAT 24 MMO/L (23-27); Arterial pH iSTAT 7.428 (7.35-7.45)
[2021-12-30 04:10] LABS: Basophils % 0.2 % (0.0-0.8); Eosinophils # 0.2 10*3/uL (0.0-0.87); Eosinophils % 0.9 % (0.00-10.9); Hematocrit 23.1 VOL% (42.0-52.0); Hemoglobin 7.3 GM/DL (14.0-18.0); Immature Granulocytes % 0.9 %; Immature Granulocytes Absolute 0.15 #; Lymphocytes # 0.5 10*3/uL (1.4-4.0); Lymphocytes % 2.7 % (21.2-54.2); Mean Corpuscular HGB Conc 31.6 GM/DL (32-36); Mean Corpuscular Volume 94.7 FL (87-102); Mean Platelet Volume 12.5 FL (9.6-12.0); Monocytes # 0.6 10*3/uL (0.11-0.8); Monocytes % 3.2 % (1.7-12.7); NRBC # 0.02 10*3/uL; Neutrophils % 92.1 % (38.7-73.9); Platelet Count 154 T/CUMM (130-400); Red Blood Count 2.44 MC/CUMM (3.8-5.5); Red Cell Distribution Width 15.3 % (9.3-17.3); White Blood Count 17.3 T/CUMM (4-12)
[2021-12-30 04:28] LABS: Band Neutrophils 1 % (0-10); Eosinophils 1 % (0-10); Lymphocytes 7 % (20-55); Total Cells Counted 100
[2021-12-30 04:29] LABS: Platelet Estimate Adequate
[2021-12-30 04:32] LABS: Alanine Aminotransferase 131 U/L (16-61); Albumin 1.3 G/DL (3.4-5.0); Alkaline Phosphatase 95 U/L (45-117); Aspartate Amino Transferase 77 U/L (0-37); Bilirubin,Total < 0.39 MG/DL (0.20-1.00); Blood Urea Nitrogen 148 MG/DL (7-18); Calcium 8.6 MG/DL (8.5-10.1); Carbon Dioxide 22 MMOL/L (21-32); Chloride 107 MMOL/L (98-107); Glucose 157 MG/DL (74-106); Potassium 4.6 MMOL/L (3.5-5.1); Sodium 143 MMOL/L (136-145); Total Protein 5.8 G/DL (6.4-8.2)
[2021-12-30] MEDS: INSULIN LISPRO 100 UNIT/ML SUBCUT SCH ×7 (05:09→23:33)
[2021-12-30 05:11] LABS: Phosphorous 8.4 MG/DL (2.5-4.9); Uric Acid 8.2 MG/DL (3.5-7.2)
[2021-12-30] MEDS: ASPIRIN 325 MG TABLET PO SCH (08:09)
[2021-12-30] MEDS: PANTOPRAZOLE 40 MG VIAL IV SCH (08:09)
[2021-12-30] MEDS: METOPROLOL TARTRATE 50 MG TABLET PO SCH ×2 (08:10→20:50)
[2021-12-30] MEDS: AMIODARONE 200 MG TABLET PO SCH ×2 (08:10→20:50)
[2021-12-30] MEDS: INSULIN GLARGINE 100 UNIT/ML SUBCUT SCH ×2 (08:10→20:50)
[2021-12-30] MEDS: CHLORHEXIDINE 0.12% ORAL RINSE 60 ML BOTTLE SWISH/SPIT SCH ×2 (08:11→20:51)
[2021-12-30] MEDS: PIPERACILLIN/TAZOBACTAM 3,375 MG in SODIUM CHLORIDE 0.9% 100 ML IV SCH ×2 (09:05→21:18)
[2021-12-31] MEDS: LEVALBUTEROL 1.25 MG/3 ML NEB RESP TX SCH ×4 (01:05→20:12)
[2021-12-31 03:47] LABS: Basophils % 0.1 % (0.0-0.8); Eosinophils # 0.1 10*3/uL (0.0-0.87); Eosinophils % 0.7 % (0.00-10.9); Hematocrit 20.5 VOL% (42.0-52.0); Hemoglobin 6.6 GM/DL (14.0-18.0); Immature Granulocytes % 0.7 %; Immature Granulocytes Absolute 0.11 #; Lymphocytes # 0.4 10*3/uL (1.4-4.0); Lymphocytes % 2.2 % (21.2-54.2); Mean Corpuscular HGB Conc 32.2 GM/DL (32-36); Mean Corpuscular Volume 94.5 FL (87-102); Mean Platelet Volume 12.3 FL (9.6-12.0); Monocytes # 0.5 10*3/uL (0.11-0.8); Monocytes % 2.9 % (1.7-12.7); NRBC # 0.02 10*3/uL; Neutrophils % 93.4 % (38.7-73.9); Platelet Count 150 T/CUMM (130-400); Red Blood Count 2.17 MC/CUMM (3.8-5.5); Red Cell Distribution Width 15.1 % (9.3-17.3)
[2021-12-31 04:02] LABS: Arterial Base Excess iSTAT -3 MMOL/L (-2.5-2.5); Arterial Bicarbonate iSTAT 21.8 MMOL/L (20-26); Arterial O2 Saturation iSTAT 99 % (95-100); Arterial PCO2 iSTAT 34 MM HG (35-48); Arterial PO2 iSTAT 130 MM HG (80-95); Arterial Total CO2 iSTAT 23 MMO/L (23-27)
[2021-12-31 04:06] LABS: Eosinophils 1 % (0-10); Lymphocytes 2 % (20-55); Platelet Estimate Adequate; Total Cells Counted 100
[2021-12-31 04:07] LABS: Hypochromia Slight
[2021-12-31 04:15] LABS: Alanine Aminotransferase 125 U/L (16-61); Albumin 1.2 G/DL (3.4-5.0); Alkaline Phosphatase 96 U/L (45-117); Aspartate Amino Transferase 59 U/L (0-37); Bilirubin,Total < 0.39 MG/DL (0.20-1.00); Blood Urea Nitrogen 170 MG/DL (7-18); Calcium 8.7 MG/DL (8.5-10.1); Carbon Dioxide 22 MMOL/L (21-32); Chloride 109 MMOL/L (98-107); Glucose 145 MG/DL (74-106); Osmolality,Calculated 344.8 MOS/KG (273-304); Potassium 4.4 MMOL/L (3.5-5.1); Sodium 144 MMOL/L (136-145); Total Protein 5.8 G/DL (6.4-8.2)
[2021-12-31] MEDS: INSULIN LISPRO 100 UNIT/ML SUBCUT SCH ×6 (04:39→23:16)
[2021-12-31 07:19] LABS: Total Protein (Chem) 5.9 G/DL (6.4-8.3)
[2021-12-31] MEDS: CHLORHEXIDINE 0.12% ORAL RINSE 60 ML BOTTLE SWISH/SPIT SCH ×2 (07:45→21:18)
[2021-12-31] MEDS: PANTOPRAZOLE 40 MG VIAL IV SCH (08:05)
[2021-12-31] MEDS: PIPERACILLIN/TAZOBACTAM 3,375 MG in SODIUM CHLORIDE 0.9% 100 ML IV SCH (08:05)
[2021-12-31] MEDS: INSULIN GLARGINE 100 UNIT/ML SUBCUT SCH ×2 (08:10→21:18)
[2021-12-31] MEDS: AMIODARONE 200 MG TABLET PO SCH ×2 (08:15→21:17)
[2021-12-31] MEDS: METOPROLOL TARTRATE 50 MG TABLET PO SCH ×2 (08:15→21:17)
[2021-12-31] MEDS: ASPIRIN EC 81 MG TABLET PO SCH (08:15)
[2021-12-31 08:54] LABS: Albumin (SPE) 2.1 G/DL (3.2-5.3); Alpha 1 (SPE) 0.6 G/DL (0.1-0.4); Alpha 1 (SPE) Rel % 9.6 %; Alpha 2 (SPE) 1.6 G/DL (0.4-1.0); Alpha 2 (SPE) Rel % 27.9 %; Beta (SPE) 1.1 G/DL (0.5-1.1); Gamma (SPE) 0.6 G/DL (0.7-1.7); Gamma (SPE) Rel % 9.5 %
[2021-12-31] MEDS: LEVOFLOXACIN INJ 500 MG/100 ML PREMIX IV SCH (12:05)
[2021-12-31] MEDS ORDERED: FLUCONAZOLE INJ 200 MG/100 ML PREMIX IV SCH (17:00)
[2021-12-31] MEDS ORDERED: GENTAMICIN INJ 160 MG in SODIUM CHLORIDE 0.9% 100 ML IV ONE (17:00)
[2021-12-31 21:20] LABS: Basophils % 0.2 % (0.0-0.8); Eosinophils % 0.1 % (0.00-10.9); Hematocrit 23.7 VOL% (42.0-52.0); Hemoglobin 7.7 GM/DL (14.0-18.0); Immature Granulocytes % 1.1 %; Immature Granulocytes Absolute 0.21 #; Lymphocytes # 0.3 10*3/uL (1.4-4.0); Lymphocytes % 1.5 % (21.2-54.2); Mean Corpuscular HGB Conc 32.5 GM/DL (32-36); Mean Corpuscular Volume 92.2 FL (87-102); Mean Platelet Volume 12.4 FL (9.6-12.0); Monocytes # 0.6 10*3/uL (0.11-0.8); Monocytes % 2.9 % (1.7-12.7); NRBC # 0.04 10*3/uL; Neutrophils % 94.2 % (38.7-73.9); Platelet Count 157 T/CUMM (130-400); Red Blood Count 2.57 MC/CUMM (3.8-5.5); Red Cell Distribution Width 16.1 % (9.3-17.3); White Blood Count 19.4 T/CUMM (4-12)
[2021-12-31] MEDS: MORPHINE 2 MG/1 ML SYRINGE IV PRN (21:40)
[2021-12-31 21:41] LABS: Lymphocytes 2 % (20-55); Platelet Estimate Adequate; Total Cells Counted 100
[2022-01-01] MEDS: LEVALBUTEROL 1.25 MG/3 ML NEB RESP TX SCH ×4 (00:29→18:48)
[2022-01-01] MEDS: INSULIN LISPRO 100 UNIT/ML SUBCUT SCH ×6 (04:21→23:46)
[2022-01-01 04:25] LABS: Basophils % 0.2 % (0.0-0.8); Eosinophils # 0.1 10*3/uL (0.0-0.87); Eosinophils % 0.3 % (0.00-10.9); Hematocrit 23.1 VOL% (42.0-52.0); Hemoglobin 7.4 GM/DL (14.0-18.0); Immature Granulocytes % 0.8 %; Immature Granulocytes Absolute 0.13 #; Lymphocytes # 0.5 10*3/uL (1.4-4.0); Lymphocytes % 2.8 % (21.2-54.2); Mean Corpuscular Volume 91.3 FL (87-102); Mean Platelet Volume 12.7 FL (9.6-12.0); Monocytes # 0.6 10*3/uL (0.11-0.8); Monocytes % 3.6 % (1.7-12.7); NRBC # 0.03 10*3/uL; Neutrophils % 92.3 % (38.7-73.9); Platelet Count 162 T/CUMM (130-400); Red Blood Count 2.53 MC/CUMM (3.8-5.5); Red Cell Distribution Width 16.5 % (9.3-17.3); White Blood Count 16.9 T/CUMM (4-12)
[2022-01-01 04:44] LABS: Calcium 8.4 MG/DL (8.5-10.1); Eosinophils 1 % (0-10); Lymphocytes 3 % (20-55); Osmolality,Calculated 333.1 MOS/KG (273-304); Platelet Estimate Adequate; Potassium 4.3 MMOL/L (3.5-5.1); Total Cells Counted 100
[2022-01-01 05:03] LABS: ABG Base Excess -2.4 MMOL/L (-2.5-2.5); ABG HCO3 22.4 MMOL/L (20-26); ABG Oxygen Saturation 99.1 % (95-100); ABG PCO2 33.6 MM HG (35-48); ABG PH 7.418 (7.35-7.45); ABG TCO2 20.5 MMOL/L (23-27)
[2022-01-01] MEDS: CHLORHEXIDINE 0.12% ORAL RINSE 60 ML BOTTLE SWISH/SPIT SCH ×2 (07:15→21:18)
[2022-01-01] MEDS: INSULIN GLARGINE 100 UNIT/ML SUBCUT SCH ×3 (08:10→21:17)
[2022-01-01] MEDS: PANTOPRAZOLE 40 MG VIAL IV SCH (08:10)
[2022-01-01] MEDS: AMIODARONE 200 MG TABLET PO SCH ×2 (08:15→21:17)
[2022-01-01] MEDS: ASPIRIN EC 81 MG TABLET PO SCH (08:15)
[2022-01-01] MEDS: METOPROLOL TARTRATE 50 MG TABLET PO SCH ×2 (08:15→21:17)
[2022-01-02] MEDS: LEVALBUTEROL 1.25 MG/3 ML NEB RESP TX SCH ×4 (01:55→20:05)
[2022-01-02 04:21] LABS: Basophils % 0.2 % (0.0-0.8); Eosinophils # 0.1 10*3/uL (0.0-0.87); Eosinophils % 0.9 % (0.00-10.9); Hematocrit 20.7 VOL% (42.0-52.0); Hemoglobin 6.6 GM/DL (14.0-18.0); Immature Granulocytes % 1.2 %; Immature Granulocytes Absolute 0.17 #; Lymphocytes # 0.5 10*3/uL (1.4-4.0); Lymphocytes % 3.3 % (21.2-54.2); Mean Corpuscular HGB Conc 31.9 GM/DL (32-36); Mean Corpuscular Volume 93.7 FL (87-102); Mean Platelet Volume 11.7 FL (9.6-12.0); Monocytes # 0.6 10*3/uL (0.11-0.8); Monocytes % 3.8 % (1.7-12.7); NRBC # 0.03 10*3/uL; Neutrophils % 90.6 % (38.7-73.9); Platelet Count 167 T/CUMM (130-400); Red Blood Count 2.21 MC/CUMM (3.8-5.5); Red Cell Distribution Width 16.4 % (9.3-17.3); White Blood Count 14.4 T/CUMM (4-12)
[2022-01-02 04:36] LABS: Calcium 8.8 MG/DL (8.5-10.1); Potassium 4.6 MMOL/L (3.5-5.1)
[2022-01-02 04:39] LABS: Lymphocytes 2 % (20-55); Platelet Estimate Adequate; Total Cells Counted 100
[2022-01-02] MEDS: INSULIN LISPRO 100 UNIT/ML SUBCUT SCH ×5 (04:58→21:37)
[2022-01-02 05:22] LABS: ABG Base Excess -2.6 MMOL/L (-2.5-2.5); ABG HCO3 22.2 MMOL/L (20-26); ABG Oxygen Saturation 99.1 % (95-100); ABG PCO2 33.8 MM HG (35-48); ABG PH 7.413 (7.35-7.45); ABG TCO2 20.7 MMOL/L (23-27)
[2022-01-02] MEDS: MORPHINE 2 MG/1 ML SYRINGE IV PRN ×2 (06:39→14:00)
[2022-01-02] MEDS: METOPROLOL TARTRATE 50 MG TABLET PO SCH ×2 (08:36→21:37)
[2022-01-02] MEDS: ASPIRIN EC 81 MG TABLET PO SCH (08:36)
[2022-01-02] MEDS: AMIODARONE 200 MG TABLET PO SCH ×2 (08:36→21:37)
[2022-01-02] MEDS: CHLORHEXIDINE 0.12% ORAL RINSE 60 ML BOTTLE SWISH/SPIT SCH ×2 (08:37→21:38)
[2022-01-02] MEDS: PANTOPRAZOLE 40 MG VIAL IV SCH (08:37)
[2022-01-02] MEDS: MICAFUNGIN 100 MG in SODIUM CHLORIDE 0.9% 100 ML IV SCH (09:22)
[2022-01-02] MEDS: INSULIN GLARGINE 100 UNIT/ML SUBCUT SCH ×2 (09:36→21:37)
[2022-01-02] MEDS: LEVOFLOXACIN INJ 500 MG/100 ML PREMIX IV SCH (11:48)
[2022-01-02] MEDS ORDERED: GENTAMICIN INJ 160 MG in SODIUM CHLORIDE 0.9% 100 ML IV ONE (17:00)
[2022-01-03] MEDS: LEVALBUTEROL 1.25 MG/3 ML NEB RESP TX SCH ×4 (00:46→19:07)
[2022-01-03] MEDS: INSULIN LISPRO 100 UNIT/ML SUBCUT SCH ×6 (01:25→21:40)
[2022-01-03 04:16] LABS: Basophils # 0.1 10*3/uL (0.0-0.2); Basophils % 0.4 % (0.0-0.8); Eosinophils # 0.1 10*3/uL (0.0-0.87); Eosinophils % 0.8 % (0.00-10.9); Hematocrit 25.4 VOL% (42.0-52.0); Hemoglobin 7.9 GM/DL (14.0-18.0); Immature Granulocytes % 2.3 %; Immature Granulocytes Absolute 0.33 #; Lymphocytes # 0.7 10*3/uL (1.4-4.0); Lymphocytes % 4.6 % (21.2-54.2); Mean Corpuscular HGB Conc 31.1 GM/DL (32-36); Mean Platelet Volume 12.3 FL (9.6-12.0); Monocytes # 0.6 10*3/uL (0.11-0.8); NRBC # 0.06 10*3/uL; Neutrophils % 87.9 % (38.7-73.9); Platelet Count 178 T/CUMM (130-400); Red Blood Count 2.76 MC/CUMM (3.8-5.5); Red Cell Distribution Width 18.1 % (9.3-17.3); White Blood Count 14.2 T/CUMM (4-12)
[2022-01-03 04:39] LABS: Calcium 8.7 MG/DL (8.5-10.1); Osmolality,Calculated 322.3 MOS/KG (273-304); Potassium 4.3 MMOL/L (3.5-5.1)
[2022-01-03 04:43] LABS: Eosinophils 2 % (0-10); Lymphocytes 7 % (20-55); Platelet Estimate Adequate; Total Cells Counted 100
[2022-01-03 05:43] LABS: ABG HCO3 24.4 MMOL/L (20-26); ABG Oxygen Saturation 98.3 % (95-100); ABG PCO2 35.1 MM HG (35-48); ABG PH 7.439 (7.35-7.45)
[2022-01-03] MEDS: AMIODARONE 200 MG TABLET PO SCH ×2 (08:17→21:41)
[2022-01-03] MEDS: METOPROLOL TARTRATE 50 MG TABLET PO SCH ×2 (08:17→21:41)
[2022-01-03] MEDS: ASPIRIN EC 81 MG TABLET PO SCH (08:18)
[2022-01-03] MEDS: PANTOPRAZOLE 40 MG VIAL IV SCH (08:18)
[2022-01-03] MEDS: CHLORHEXIDINE 0.12% ORAL RINSE 60 ML BOTTLE SWISH/SPIT SCH ×2 (08:18→21:42)
[2022-01-03] MEDS: INSULIN GLARGINE 100 UNIT/ML SUBCUT SCH ×2 (09:06→21:40)
[2022-01-03] MEDS: MICAFUNGIN 100 MG in SODIUM CHLORIDE 0.9% 100 ML IV SCH (09:06)
[2022-01-03] MEDS: MORPHINE 2 MG/1 ML SYRINGE IV PRN (09:10)
[2022-01-04] MEDS: LEVALBUTEROL 1.25 MG/3 ML NEB RESP TX SCH ×4 (00:40→19:14)
[2022-01-04 04:09] LABS: Basophils % 0.2 % (0.0-0.8); Eosinophils # 0.2 10*3/uL (0.0-0.87); Eosinophils % 1.8 % (0.00-10.9); Hematocrit 24.5 VOL% (42.0-52.0); Hemoglobin 7.4 GM/DL (14.0-18.0); Immature Granulocytes % 2.3 %; Immature Granulocytes Absolute 0.29 #; Lymphocytes # 0.6 10*3/uL (1.4-4.0); Lymphocytes % 4.6 % (21.2-54.2); Mean Corpuscular HGB Conc 30.2 GM/DL (32-36); Mean Corpuscular Volume 92.8 FL (87-102); Mean Platelet Volume 12.1 FL (9.6-12.0); Monocytes # 0.6 10*3/uL (0.11-0.8); Monocytes % 4.6 % (1.7-12.7); NRBC # 0.03 10*3/uL; Neutrophils % 86.5 % (38.7-73.9); Platelet Count 204 T/CUMM (130-400); Red Blood Count 2.64 MC/CUMM (3.8-5.5); Red Cell Distribution Width 17.6 % (9.3-17.3); White Blood Count 12.5 T/CUMM (4-12)
[2022-01-04] MEDS: INSULIN LISPRO 100 UNIT/ML SUBCUT SCH ×6 (04:10→20:02)
[2022-01-04 04:26] LABS: Alanine Aminotransferase 67 U/L (16-61); Albumin 1.4 G/DL (3.4-5.0); Alkaline Phosphatase 83 U/L (45-117); Aspartate Amino Transferase 29 U/L (0-37); Bilirubin,Total < 0.39 MG/DL (0.20-1.00); Blood Urea Nitrogen 147 MG/DL (7-18); Calcium 8.9 MG/DL (8.5-10.1); Carbon Dioxide 25 MMOL/L (21-32); Chloride 106 MMOL/L (98-107); Glucose 133 MG/DL (74-106); Osmolality,Calculated 332.1 MOS/KG (273-304); Potassium 4.5 MMOL/L (3.5-5.1); Sodium 142 MMOL/L (136-145)
[2022-01-04 04:33] LABS: Band Neutrophils 2 % (0-10); Eosinophils 1 % (0-10); Lymphocytes 3 % (20-55); Metamyelocytes 1 %; Microcytosis 1+; Nucleated Red Blood Cells 1 (0-5); Target Cells Slight; Total Cells Counted 100
[2022-01-04 04:34] LABS: Anisocytosis 1+; Hypochromia Slight; Platelet Estimate Normal; Polychromasia Slight
[2022-01-04] MEDS: INSULIN GLARGINE 100 UNIT/ML SUBCUT SCH ×2 (07:35→21:25)
[2022-01-04] MEDS: ASPIRIN EC 81 MG TABLET PO SCH (08:35)
[2022-01-04] MEDS: METOPROLOL TARTRATE 50 MG TABLET PO SCH ×2 (08:35→21:26)
[2022-01-04] MEDS: CHLORHEXIDINE 0.12% ORAL RINSE 60 ML BOTTLE SWISH/SPIT SCH ×2 (08:35→21:26)
[2022-01-04] MEDS: AMIODARONE 200 MG TABLET PO SCH ×2 (08:35→21:26)
[2022-01-04] MEDS: OMEPRAZOLE ODT 20 MG TABLET PO SCH (08:35)
[2022-01-04] MEDS: MICAFUNGIN 100 MG in SODIUM CHLORIDE 0.9% 100 ML IV SCH (08:40)
[2022-01-04] MEDS: LEVOFLOXACIN INJ 500 MG/100 ML PREMIX IV SCH (10:05)
[2022-01-04] MEDS ORDERED: GENTAMICIN INJ 160 MG in SODIUM CHLORIDE 0.9% 100 ML IV ONE (17:00)
[2022-01-04] MEDS: ACETAMINOPHEN 325 MG/10.15 ML UDCUP NG PRN (21:26)
[2022-01-05] MEDS: LEVALBUTEROL 1.25 MG/3 ML NEB RESP TX SCH ×4 (00:04→18:42)
[2022-01-05] MEDS: INSULIN LISPRO 100 UNIT/ML SUBCUT SCH ×7 (04:39→23:09)
[2022-01-05 07:19] LABS: Basophils # 0.1 10*3/uL (0.0-0.2); Basophils % 0.5 % (0.0-0.8); Eosinophils # 0.3 10*3/uL (0.0-0.87); Eosinophils % 2.4 % (0.00-10.9); Hematocrit 28.5 VOL% (42.0-52.0); Hemoglobin 8.8 GM/DL (14.0-18.0); Immature Granulocytes % 3.2 %; Immature Granulocytes Absolute 0.35 #; Lymphocytes # 0.4 10*3/uL (1.4-4.0); Lymphocytes % 3.9 % (21.2-54.2); Mean Corpuscular HGB Conc 30.9 GM/DL (32-36); Mean Corpuscular Volume 90.5 FL (87-102); Mean Platelet Volume 12.1 FL (9.6-12.0); Monocytes # 0.6 10*3/uL (0.11-0.8); Monocytes % 5.7 % (1.7-12.7); NRBC # 0.03 10*3/uL; Neutrophils % 84.3 % (38.7-73.9); Platelet Count 260 T/CUMM (130-400); Red Blood Count 3.15 MC/CUMM (3.8-5.5); Red Cell Distribution Width 17.5 % (9.3-17.3); White Blood Count 11.1 T/CUMM (4-12)
[2022-01-05 07:36] LABS: Osmolality,Calculated 318.4 MOS/KG (273-304); Potassium 4.4 MMOL/L (3.5-5.1)
[2022-01-05 07:45] LABS: Eosinophils 2 % (0-10); Hypochromia Slight; Lymphocytes 4 % (20-55); Platelet Estimate Adequate; Total Cells Counted 100
[2022-01-05] MEDS: CHLORHEXIDINE 0.12% ORAL RINSE 60 ML BOTTLE SWISH/SPIT SCH ×2 (07:50→20:48)
[2022-01-05] MEDS: INSULIN GLARGINE 100 UNIT/ML SUBCUT SCH ×2 (08:00→20:48)
[2022-01-05] MEDS: MICAFUNGIN 100 MG in SODIUM CHLORIDE 0.9% 100 ML IV SCH (08:00)
[2022-01-05] MEDS: AMIODARONE 200 MG TABLET PO SCH ×2 (08:10→20:48)
[2022-01-05] MEDS: OMEPRAZOLE ODT 20 MG TABLET PO SCH (08:10)
[2022-01-05] MEDS: ASPIRIN EC 81 MG TABLET PO SCH (08:10)
[2022-01-05] MEDS: METOPROLOL TARTRATE 50 MG TABLET PO SCH ×2 (08:10→20:48)
[2022-01-06] MEDS: LEVALBUTEROL 1.25 MG/3 ML NEB RESP TX SCH ×4 (00:36→19:25)
[2022-01-06] MEDS: INSULIN LISPRO 100 UNIT/ML SUBCUT SCH ×5 (03:43→20:25)
[2022-01-06 04:05] LABS: Basophils % 0.4 % (0.0-0.8); Eosinophils # 0.3 10*3/uL (0.0-0.87); Hematocrit 24.5 VOL% (42.0-52.0); Hemoglobin 7.4 GM/DL (14.0-18.0); Immature Granulocytes % 3.1 %; Lymphocytes # 0.5 10*3/uL (1.4-4.0); Lymphocytes % 5.2 % (21.2-54.2); Mean Corpuscular HGB Conc 30.2 GM/DL (32-36); Mean Corpuscular Volume 92.1 FL (87-102); Mean Platelet Volume 11.7 FL (9.6-12.0); Monocytes # 0.6 10*3/uL (0.11-0.8); Monocytes % 5.7 % (1.7-12.7); Neutrophils % 82.6 % (38.7-73.9); Platelet Count 299 T/CUMM (130-400); Red Blood Count 2.66 MC/CUMM (3.8-5.5); Red Cell Distribution Width 17.2 % (9.3-17.3); White Blood Count 9.6 T/CUMM (4-12)
[2022-01-06 04:23] LABS: Calcium 9.1 MG/DL (8.5-10.1); Osmolality,Calculated 321.5 MOS/KG (273-304); Potassium 4.3 MMOL/L (3.5-5.1)
[2022-01-06] MEDS: INSULIN GLARGINE 100 UNIT/ML SUBCUT SCH ×2 (07:40→20:55)
[2022-01-06] MEDS: AMIODARONE 200 MG TABLET PO SCH ×2 (08:30→20:55)
[2022-01-06] MEDS: OMEPRAZOLE ODT 20 MG TABLET PO SCH (08:30)
[2022-01-06] MEDS: CHLORHEXIDINE 0.12% ORAL RINSE 60 ML BOTTLE SWISH/SPIT SCH ×2 (08:30→20:55)
[2022-01-06] MEDS: MICAFUNGIN 100 MG in SODIUM CHLORIDE 0.9% 100 ML IV SCH (08:30)
[2022-01-06] MEDS: ASPIRIN EC 81 MG TABLET PO SCH (08:30)
[2022-01-06] MEDS: METOPROLOL TARTRATE 50 MG TABLET PO SCH ×2 (08:30→20:55)
[2022-01-06] MEDS: ACETAMINOPHEN 325 MG/10.15 ML UDCUP NG PRN (08:30)
[2022-01-06] MEDS: LEVOFLOXACIN INJ 500 MG/100 ML PREMIX IV SCH (10:55)
[2022-01-06] MEDS: ATORVASTATIN 40 MG TABLET PO SCH (20:55)
[2022-01-07] MEDS: INSULIN LISPRO 100 UNIT/ML SUBCUT SCH ×7 (00:11→23:44)
[2022-01-07] MEDS: LEVALBUTEROL 1.25 MG/3 ML NEB RESP TX SCH ×4 (00:30→19:05)
[2022-01-07 04:46] LABS: Basophils % 0.4 % (0.0-0.8); Eosinophils # 0.4 10*3/uL (0.0-0.87); Eosinophils % 3.9 % (0.00-10.9); Hematocrit 23.8 VOL% (42.0-52.0); Hemoglobin 7.2 GM/DL (14.0-18.0); Immature Granulocytes % 2.9 %; Immature Granulocytes Absolute 0.26 #; Lymphocytes # 0.5 10*3/uL (1.4-4.0); Lymphocytes % 5.6 % (21.2-54.2); Mean Corpuscular HGB Conc 30.3 GM/DL (32-36); Mean Corpuscular Volume 92.2 FL (87-102); Mean Platelet Volume 11.4 FL (9.6-12.0); Monocytes # 0.7 10*3/uL (0.11-0.8); Monocytes % 7.4 % (1.7-12.7); Neutrophils % 79.8 % (38.7-73.9); Platelet Count 354 T/CUMM (130-400); Red Blood Count 2.58 MC/CUMM (3.8-5.5); Red Cell Distribution Width 16.9 % (9.3-17.3); White Blood Count 9.1 T/CUMM (4-12)
[2022-01-07 05:05] LABS: Calcium 8.9 MG/DL (8.5-10.1); Osmolality,Calculated 337.1 MOS/KG (273-304); Potassium 4.3 MMOL/L (3.5-5.1)
[2022-01-07] MEDS: METOPROLOL TARTRATE 50 MG TABLET PO SCH ×2 (09:03→20:23)
[2022-01-07] MEDS: AMIODARONE 200 MG TABLET PO SCH ×2 (09:03→20:23)
[2022-01-07] MEDS: OMEPRAZOLE ODT 20 MG TABLET PO SCH (09:03)
[2022-01-07] MEDS: ASPIRIN EC 81 MG TABLET PO SCH (09:03)
[2022-01-07] MEDS: INSULIN GLARGINE 100 UNIT/ML SUBCUT SCH ×2 (09:04→20:24)
[2022-01-07] MEDS: CHLORHEXIDINE 0.12% ORAL RINSE 60 ML BOTTLE SWISH/SPIT SCH ×2 (09:28→20:25)
[2022-01-07] MEDS: MICAFUNGIN 100 MG in SODIUM CHLORIDE 0.9% 100 ML IV SCH (09:28)
[2022-01-07] MEDS ORDERED: DEXTROSE 50% 25 GM/50 ML SYRINGE IV ONE (15:20)
[2022-01-07] MEDS ORDERED: DEXTROSE 50% 25 GM/50 ML SYRINGE IV PRN (15:40)
[2022-01-07] MEDS ORDERED: DEXTROSE 10% 250 ML BAG IV PRN (15:46)
[2022-01-07] MEDS: ATORVASTATIN 40 MG TABLET PO SCH (20:23)
[2022-01-08] MEDS: LEVALBUTEROL 1.25 MG/3 ML NEB RESP TX SCH ×2 (00:35→07:05)
[2022-01-08 04:30] LABS: Basophils # 0.1 10*3/uL (0.0-0.2); Basophils % 0.5 % (0.0-0.8); Eosinophils # 0.3 10*3/uL (0.0-0.87); Eosinophils % 2.8 % (0.00-10.9); Hematocrit 25.3 VOL% (42.0-52.0); Hemoglobin 7.6 GM/DL (14.0-18.0); Immature Granulocytes % 4.3 %; Immature Granulocytes Absolute 0.46 #; Lymphocytes # 0.6 10*3/uL (1.4-4.0); Lymphocytes % 5.5 % (21.2-54.2); Mean Corpuscular Volume 92.7 FL (87-102); Mean Platelet Volume 11.3 FL (9.6-12.0); Monocytes # 0.9 10*3/uL (0.11-0.8); Monocytes % 8.6 % (1.7-12.7); Neutrophils % 78.3 % (38.7-73.9); Platelet Count 437 T/CUMM (130-400); Red Blood Count 2.73 MC/CUMM (3.8-5.5); Red Cell Distribution Width 16.9 % (9.3-17.3); White Blood Count 10.6 T/CUMM (4-12)
[2022-01-08 04:47] LABS: Calcium 9.2 MG/DL (8.5-10.1); Osmolality,Calculated 346.8 MOS/KG (273-304); Potassium 4.5 MMOL/L (3.5-5.1)
[2022-01-08] MEDS: INSULIN LISPRO 100 UNIT/ML SUBCUT SCH ×3 (04:59→12:02)
[2022-01-08 06:06] VITALS: BP 137/80
[2022-01-08] MEDS: INSULIN GLARGINE 100 UNIT/ML SUBCUT SCH (08:57)
[2022-01-08] MEDS: OMEPRAZOLE ODT 20 MG TABLET PO SCH (08:58)
[2022-01-08] MEDS: ASPIRIN EC 81 MG TABLET PO SCH (08:58)
[2022-01-08] MEDS: METOPROLOL TARTRATE 50 MG TABLET PO SCH (08:58)
[2022-01-08] MEDS: AMIODARONE 200 MG TABLET PO SCH (08:58)
[2022-01-08] MEDS: CHLORHEXIDINE 0.12% ORAL RINSE 60 ML BOTTLE SWISH/SPIT SCH (09:01)
[2022-01-08] MEDS: MICAFUNGIN 100 MG in SODIUM CHLORIDE 0.9% 100 ML IV SCH (09:01)
[2022-01-08] MEDS: LEVOFLOXACIN INJ 500 MG/100 ML PREMIX IV SCH (11:12)
== END 2022-01-08 12:45 | DRG 3 ==
LOC: N.ICU 12:09 → N.CVR 12-12 12:09 → N.ICU 12-14 07:19
PROC: EGDWPEG (ICD-10-PCS; 2021-12-21 10:50)